=== PATIENT | female | born 1965 ===

== ENCOUNTER → 2020-03-26 11:57 | Outpatient (CLI) | payer OTHER, SELFPAY ==
--- NOTE | 2020-03-26 12:00 | DI.MG.S_ITS ---
BILATERAL DIGITAL SCREENING MAMMOGRAM 3D/2D WITH CAD: 03/26/2020 CLINICAL: Routine screening. Family history of breast cancer. Comparison is made to exam dated: 09/08/2008 mammogram - [facility]. There are scattered fibroglandular elements in both breasts. Current study was also evaluated with a Computer Aided Detection (CAD) system. No significant masses, calcifications, or other findings are seen in either breast. There has been no significant interval change. IMPRESSION: NEGATIVE There is no mammographic evidence of malignancy. A 1 year screening mammogram is recommended. This exam was interpreted at Station ID: [id number]. NOTE: For mammograms, a report in lay terms will be sent to the patient. Approximately 15% of breast malignancies will not be visualized mammographically. In the management of a palpable breast mass, a negative mammogram must not discourage biopsy of a clinically suspicious lesion. Electronically Signed By: Antonio howard/adore:03/26/2020 12:27:41 letter sent: Normal Exam ACR BI-RADS Category 1: Negative [id number]
== END ==
PROVIDERS: Family Provider Family Medicine; PCP Family Medicine; Referring Provider Family Medicine; Visit Provider Family Medicine
DX: Z12.31 Encounter for screening mammogram for malignant neoplasm of breast (principal); Z80.3 Family history of malignant neoplasm of breast
CPT/HCPCS: 77063; 77067

== ENCOUNTER → 2021-01-13 08:30 | Outpatient (CLI) | payer OTHER, SELFPAY ==
--- NOTE | 2021-01-13 | DI.MRI.S_ITS ---
PROCEDURE: MR HEAD/BRAIN WO/W CON INDICATIONS: Syncope and collapse TECHNIQUE: Noncontrast axial T1 spin echo, axial T2 fast spin echo, sagittal and axial FLAIR, coronal T2 fast spin echo, axial gradient echo, axial diffusion and ADC through the brain. After the administration of contrast, axial and coronal T1 spin echo with fat saturation through the brain. COMPARISON: None. FINDINGS: Image quality: Excellent. CSF spaces: Basal cisterns are patent. No extra-axial fluid collections. Ventricles are normal in size and shape. Brain: No midline shift. No intracranial bleeds or masses. No abnormal intracranial enhancement. There is mild cerebral volume loss for age. There is minimal periventricular white matter chronic small vessel ischemic change. The brainstem appears normal. Diffusion-weighted images demonstrate no acute ischemic insults. No chronic ischemic insults. Normal intravascular flow voids are present. Skull and face: Calvarial marrow is normal in signal. Orbits appear normal. Sinuses: Sinuses and mastoids appear clear. IMPRESSION: 1. Mild volume loss and minimal small vessel ischemic disease. 2. No acute process. No recent infarct. Dictated by: Domingo Benedict M.D. on 01/13/2021 at 9:33 Approved by: Domingo Benedict M.D. on 01/13/2021 at 9:34
--- NOTE | 2021-01-13 09:30 | DI.ECHO.S_ITS ---
Reason For Study: SYNCOPE AND COLLAPSE : :Ordering Physician: ZHAO, : :BRITTANY Roberto MD Performed By: Cierra Overton : :Referring: BRITTANY CHURCHILL MD : + + Interpretation Summary 1) Normal left ventricular thickness, size, wall motion, and systolic function (EF 60-65%). 2) Normal right ventricular size and function. 3) No significant valvular abnormalities. 4) No prior Echo available for comparison. Procedure: A two-dimensional transthoracic echocardiogram with color flow and Doppler was performed. The study quality was technically difficult. There is no prior echocardiogram noted for this patient. A contrast injection of Definity was performed to improve assessment of LV function. The patient was in sinus rhythm with heart rates between 72-84 bpm during the exam. Left Ventricle: The left ventricle is normal in size and wall thickness. The ejection fraction is estimated to be 60-65%. Diastolic parameters suggest probable normal left ventricular diastolic function and normal filling pressures. Right Ventricle: The right ventricle is normal in size and function. Atria: Both atria are normal in size. There is no Doppler evidence for an interatrial shunt. Mitral Valve: The mitral valve is normal in structure and function. There is trace mitral regurgitation. Aortic Valve: The aortic valve is trileaflet. The aortic valve is mildly calcified. The aortic valve opens well. There is no aortic valve stenosis. No aortic regurgitation is present. Tricuspid Valve: The tricuspid valve is normal in structure and function. There is trace tricuspid regurgitation. Pulmonary artery pressures cannot be estimated because of the lack of a measurable TR jet velocity but the IVC suggests a CVP of around 3 mmHg. Pulmonic Valve: The pulmonic valve is not well seen, but is grossly normal. There is no pulmonic valvular regurgitation. Great Vessels: The aortic root is normal size. The ascending aorta is at the upper limits of normal in size. The IVC is of normal diameter and collapses greater than 50% with a sniff. This suggests a low right atrial pressure of 3 mm Hg. Pericardium/ Pleura There is no pericardial effusion. There is no pleural effusion. MMode/2D Measurements & Calculations LVIDd: 4.3 cm LVOT diam: 2.0 cm LVIDs: 2.7 cm Ao root diam: 3.3 cm FS: 35.9 % asc Aorta Diam: 3.4 cm IVSd: 0.84 cm Ao Arch Diam (Prox Trans): 3.1 cm LVPWd: 0.85 cm LV fang. diameter/BSA (cm/m^2): 2.1 LV sys. diameter/BSA (cm/m^2): 1.3 LA A2 area: 18.1 cm2 RA long axis: 3.9 cm LA A4 area: 15.3 cm2 RA area: 10.0 cm2 LA length (vol): 4.6 cm RA vol: 22.0 ml LA vol: 50.7 ml RA : 10.8 ml/m2 LA vol index: 24.8 ml/m2 IVC diam: 1.1 cm RVD1 (basal): 3.0 cm TAPSE: 1.8 cm Doppler Measurements & Calculations Ao V2 max: 102.0 cm/sec LVOT Max Mac: 101.2 cm/sec Ao V2 mean: 68.6 cm/sec LV V1 max P.1 mmHg Ao max P.2 mmHg LV V1 VTI: 20.6 cm Ao mean P.1 mmHg MIKAYLA(I,D): 3.4 cm2 Ao V2 VTI: 19.0 cm MIKAYLA(V,D): 3.1 cm2 sev ratio: 1.1 MIKAYLA indexed to BSA (cm^2/m^2): 1.7 MV E max mac: 62.2 cm/sec PA V2 max: 81.0 cm/sec MV A max mac: 92.8 cm/sec PA V2 mean: 62.7 cm/sec MV E/A: 0.67 PA mean P.7 mmHg Med Peak E' Mac: 6.4 cm/sec PA pr(Accel): 44.7 mmHg E/E' med: 9.7 Lat Peak E' Mac: 8.1 cm/sec E/E' lat: 7.7 E/e' average: 8.7 MV dec time: 0.25 sec SV(LVOT): 64.7 ml Reading Physician:12:36 PM
== END ==
PROVIDERS: Family Provider Family Medicine; PCP Family Medicine; Referring Provider Family Medicine; Visit Provider Family Medicine
DX: R55 Syncope and collapse (principal)
CPT/HCPCS: 70553; 93306

== ENCOUNTER → 2021-10-12 07:58 | Outpatient (CLI) | payer OTHER, SELFPAY ==
--- NOTE | 2021-11-03 15:11 | P.HOLT.S_ITS ---
Insect Control Aide Report Referral & Results Date Patient Seen: 10/12/21 Requesting provider: Sourav Aguilar Indication: Syncope Duration of monitoring (days): 14 Diary information: There was 1 patient triggered event that was associated with sinus rhythm only Data: Minimum heart rate identified was 60 beats per minute at 03:22 on 10/24/2021 Maximum sinus heart rate was 133 beats per minute at 07:10 on 10/18/2021 which was also the maximum overall heart rate Less than 1% of identified beats were ventricular or supraventricular ectopic in origin, which would classify them as rare. There were no pauses of 3 seconds or longer, episodes of atrial fibrillation, episodes of SVT, or episodes of ventricular tachycardia identified on this study Impression: Normal 14 day quality assurance monitor chassis. No etiology for syncope identified on this study
== END ==
PROVIDERS: Family Provider Family Medicine; PCP Family Medicine; Referring Provider Family Medicine; Visit Provider Family Medicine
DX: R55 Syncope and collapse (principal)
CPT/HCPCS: 93246; 93248

== ENCOUNTER 2021-11-13 09:21 | Emergency (ER) | payer OTHER, SELFPAY ==
[2021-11-13 09:36] VITALS: BP 135/68; PULSE 87; RESP 20; TEMP 36.8; O2SAT 96; BMI 35.7
--- NOTE | 2021-11-13 09:41 | DI.RAD.S_ITS ---
PROCEDURE: XR CHEST 1V INDICATIONS: chest pain TECHNIQUE: One view of the chest was acquired. COMPARISON: [facility], , CHEST 2 VIEW, 03/18/2013, 9:46. FINDINGS: Surgical changes and devices: Lower cervical spine fixation hardware is partially seen. Lungs and pleura: An incomplete inspiratory result is noted, causing a crowded appearance to the lung markings. No focal infiltrates are seen. No pneumothorax or significant pleural effusions are seen. Mediastinum: Mediastinal contours appear normal. Heart size is normal. Bones and chest wall: No suspicious bony lesions. Overlying soft tissues appear unremarkable. IMPRESSION: Limited portable chest examination, without a significant cardiopulmonary abnormality identified. Dictated by: Hammad Gale M.D. on 11/13/2021 at 9:26 Approved by: Hammad Gale M.D. on 11/13/2021 at 9:26
[2021-11-13 09:56] LABS: Alanine Aminotransferase 24 IU/L (<35); Albumin 4.5 g/dL (3.5-5.0); Albumin Globulin Ratio 1.5 (1.0-2.8); Alkaline Phosphatase 113 U/L (38-126); Aspartate Aminotransferase 28 IU/L (14-36); BUN Creatinine Ratio 14.7 (6-22); Bilirubin Total 0.3 mg/dL (0.2-1.3); Blood Urea Nitrogen 16 mg/dL (7-17); Calcium 8.7 mg/dL (8.4-10.2); Carbon Dioxide 28 mmol/L (22-32); Chloride 99 mmol/L (98-107); Creatine Kinase 56 U/L (30-135); Estimated Glomerular Filt Rate > 60 mL/min (>60); Globulin 3.1 g/dL (1.7-4.1); Glucose 143 mg/dL (70-100); HEMOLYSIS < 15 (0-50); Lipase 886 U/L (23-300); Magnesium 2.1 mg/dL (1.6-2.3); Sodium 137 mmol/L (137-145); Total Protein 7.6 g/dL (6.3-8.2)
[2021-11-13 10:08] LABS: Troponin I < 0.012 ng/mL (0.01-0.034)
[2021-11-13 10:10] LABS: COVID19 -Nasal RAPID Negative (Negative)
[2021-11-13 10:25] LABS: Add Manual Diff / Slide Review NO; Basophils Absolute Auto 0 /uL (0-100); Basophils Percent Auto 0.4 % (0-2); Eosinophils Absolute Auto 100 /uL (0-450); Eosinophils Percent Auto 0.9 % (2-4); Hematocrit 43.1 % (36-46); Hemoglobin 14.2 g/dL (12.0-16.0); Lymphocytes Absolute Auto 1700 /uL (1100-4500); Lymphocytes Percent Auto 23.3 % (25-40); Mean Corpuscular Hemoglobin 29.4 PG (26-34); Mean Corpuscular Volume 89.1 fL (80-100); Monocytes Absolute Auto 500 /uL (0-900); Monocytes Percent Auto 6.5 % (3-14); Neutrophils Absolute Auto 5000 /uL (1500-7000); Neutrophils Percent Auto 68.9 % (50-75); Platelet Count 197 X10^3/uL (150-400); Red Blood Cell Count 4.84 X10^6/uL (4.0-5.2); Red Cell Distribution Width 16.5 % (11.6-14.8); White Blood Cell Count 7.2 X10^3/uL (4.5-11.0)
--- NOTE | 2021-11-13 10:33 | DI.CT.S_ITS ---
PROCEDURE: CT CERVICAL SPINE WO CON INDICATIONS: syncope TECHNIQUE: Noncontrast 3 mm thick sections acquired from the skull base to the T4 level. Sagittal and coronal reformats were then constructed. For radiation dose reduction, the following was used: automated exposure control, adjustment of mA and/or kV according to patient size. COMPARISON: [facility], CT, CT HEAD/BRAIN WO CON, 11/13/2021, 10:49. FINDINGS: Image quality: This examination is somewhat limited by quantum mottle artifact. Bones: No fractures or dislocations. Visualized superior ribs are intact. Fixation hardware can be seen anteriorly at the C5-C6 level. Moderate to severe disc space narrowing is seen at C6-C7. Milder degenerative changes are seen elsewhere. Note is made of focal left sphenoid sinus disease. Soft tissues: Prevertebral soft tissues are normal in thickness. No paravertebral hematomas. No apical pneumothoraces. IMPRESSION: No acute fracture can be seen. Unremarkable C5-C6 postoperative hardware. Focal C6-C7 degenerative change. The Dictated by: Hammad Gale M.D. on 11/13/2021 at 10:15 Approved by: Hammad Gale M.D. on 11/13/2021 at 10:18
--- NOTE | 2021-11-13 10:33 | DI.CT.S_ITS ---
PROCEDURE: CT HEAD/BRAIN WO CON INDICATIONS: syncope TECHNIQUE: Noncontrast 4.5 mm thick angled axial sections acquired from the foramen magnum to the vertex, with coronal and sagittal reformats. For radiation dose reduction, the following was used: automated exposure control, adjustment of mA and/or kV according to patient size. COMPARISON: [facility], CR, XR CHEST 1V, 11/13/2021, 9:53. [facility], CT, CT CERVICAL SPINE WO CON, 11/13/2021, 10:49. [facility], MR, MR HEAD/BRAIN WO/W CON, 01/13/2021, 8:46. FINDINGS: Image quality: Mild streak artifact can be seen through the skull base. CSF spaces: Basal cisterns are patent. No extra-axial fluid collections. Ventricles are normal in size and shape. Brain: No midline shift. No intracranial masses or hemorrhage. Alexis-white matter interface is normal. Skull and face: Calvarium and visualized facial bones are intact, without suspicious lesions. Sinuses: Focal moderate mucosal thickening is seen involving the left sphenoid sinus. Visualized sinuses and mastoids are otherwise clear. IMPRESSION: Unremarkable noncontrast head CT, without a cause of syncope identified. Focal left sphenoid sinus disease noted. Dictated by: Hammad Gale M.D. on 11/13/2021 at 10:12 Approved by: Hammad Gale M.D. on 11/13/2021 at 10:14
--- NOTE | 2021-11-13 10:33 | ED.SYNCOPE ---
HPI - Syncope General Chief Complaint: Syncope Stated Complaint: passed out while taking a hit, shaking, bleeding Time Seen by Provider: 11/13/21 10:24 Source: patient Mode of arrival: Ambulatory Limitations: no limitations History of Present Illness HPI narrative: Patient is a 56-year-old female history of hypertension presenting today with a syncopal episode. She said she did just take a hit of marijuana joint minute later she passed out hit her head on the counter. She has a cut between her eyes. However both she and her sister state that over the last 1 year she has had multiple syncopal episodes. Not necessarily associated with inhaling. She sometimes gets a little lightheaded but very rarely has any warning sign. She has had at Zio patch on which did not show anything. She denies any numbness tingling weakness. No chest pain shortness of breath palpitation Related Data Previous Rx's Medication Instructions Recorded potassium chloride 10 mEq 10 meq PO DAILY #30 caps 11/13/21 capsule,extended release Allergies Allergy/AdvReac Type Severity Reaction Status Date / Time adhesive Allergy Unknown Verified 11/13/21 10:40 Penicillins Allergy Verified 05/14/20 15:21 Review of Systems Review of Systems Narrative: GENERAL: Denies chills, fatigue, malaise, fever, sweats, travel HEENT: Denies sinus pain, ear pain, sore throat, difficulty swallowing, neck pain RESPIRATORY: Denies dyspnea, cough, wheezing, hemoptysis, sputum. CARDIOVASCULAR: + syncope Denies chest pain, palpitations, orthopnea, edema GASTROINTESTINAL: Denies nausea, vomiting, abdominal pain, diarrhea, constipation, melena. : Denies dysuria, frequency, incontinence, hematuria, urinary retention, flank pain. MUSCULOSKELETAL: Denies weakness, joint pain, or bony pain SKIN: No rash, no erythema, no pruritus NEUROLOGIC: Denies weakness, dizziness, headache, numbness, change in speech, confusion PSYCHIATRIC: No concerning psychosocial issues. 12 point review of systems is negative except for those stated above and HPI Patient History Medical History No active medical problems Social History Smoking Status: Current every day smoker Smoking Status: Current every day smoker Exam Initial Vital Signs Initial Vital Signs: Vital Signs Temperature 98.3 F 11/13/21 09:36 Pulse Rate 87 11/13/21 09:36 Respiratory Rate 20 11/13/21 09:36 Blood Pressure 135/68 11/13/21 09:36 Pulse Oximetry 96 11/13/21 09:36 Oxygen Delivery Method 11/13/21 09:36 GENERAL: Alert pleasant 56-year-old female and in no acute distress. HEENT: Head atraumatic,EOMI, pupils reactive, face symmetric, moist mucous membranes CARDIOVASCULAR: Regular rate and rhythm without murmurs, rubs or gallops. RESPIRATORY: Breath sounds equal bilaterally, no wheezes rales or rhonchi. ABDOMEN: Soft, nontender. Normoactive bowel sounds all 4 quadrants. No guarding or rebound. EXTREMITIES: Normal range of motion, no clubbing or edema. Neurovascularly intact NEUROLOGICAL: Alert and oriented x4.Normal gait and speech. Cranial nerves II through XII grossly intact. Good [id number], good simb-gb-naal, strength equal bilaterally, no dysarthria or aphasia, sensation in tact to soft touch bilaterally, no visual changes, no facial droop SKIN: 2.5cm laceration face Procedures Laceration Repair Laceration 1: Site: face Size (cm): 2.5 Description: linear Depth: simple, single layer Local Anesthetic: lidocaine 2% Amount of anesthesia used (mL): 3 Pre-repair: wound explored, irrigated extensively and deep structures intact Skin layer closed with: nylon Skin layer suture size: 5-0 Number of sutures: 5 Technique: simple, interrupted Scores NIH Stroke Scale Level of Conciousness: Alert, keenly responsive Ask month/age: Answers both questions correctly. Open/close eyes, close hand: Performs both tasks correctly Best gaze horizontal: Normal Visual hernandez: No visual loss Facial palsy: Normal symetrical movement Left arm drift: No drift for full 10 sec Right arm drift: No drift for full 10 sec Left leg drift: No drift for full 5 sec Right leg drift: No drift for full 5 sec Limb ataxia: Absent Sensory on face/arms/legs: Normal, no sensory loss Best language: No aphasia, normal Dysarthria: Normal Extinction or inattention: No abnormality Total NIH Stroke scale score: 0 Course Orders Ordered: ED Orders 11/13/21 10:33 CT cervical spine wo con Stat CT head/brain wo con Stat Discontinued Medications Bacitracin (Bacitracin Oint 0.9 Gm Pckt) 1 applic TOP NOW ONE Stop: 11/13/21 12:15 Last Admin: 11/13/21 12:28 Dose: 1 applic Documented By: JORDAN Diphtheria/Tetanus/Acell Pertussis (Tet,Diph,Pertuss(Acell),Vac/Pf 0.5 Ml Syringe) 0.5 ml IM .ONCE ONE Stop: 11/13/21 10:41 Last Admin: 11/13/21 11:05 Dose: 0.5 ml Documented By: AMBER Sodium Chloride (Normal Saline 0.9%) 1,000 mls @ 1,000 mls/hr IV BOLUS ONE Stop: 11/13/21 11:32 Last Infusion: 11/13/21 12:10 Dose: 0 mls/hr Documented By: Admin: 11/13/21 11:06 Dose: 1,000 mls/hr Documented By: AMBER Potassium Chloride (Potassium Chloride 20 Meq Tab) 40 meq PO NOW ONE Stop: 11/13/21 11:48 Last Admin: 11/13/21 11:56 Dose: 40 meq Documented By: JORDAN Vital Signs Vital signs: Vital Signs - 8 hr 11/13/21 10:51 11/13/21 11:09 11/13/21 11:30 Pulse Rate 81 Pulse Rate [Orthostatic Lying] 79 Pulse Rate [Orthostatic Standing] 82 Respiratory Rate 20 Blood Pressure 123/67 Blood Pressure [Orthostatic Lying] 120/68 Blood Pressure [Orthostatic Standing] 115/67 Pulse Oximetry 96 11/13/21 11:30 11/13/21 12:00 11/13/21 12:01 Pulse Rate 80 86 Pulse Rate [Orthostatic Lying] Pulse Rate [Orthostatic Standing] Respiratory Rate 18 Blood Pressure 156/81 H Blood Pressure [Orthostatic Lying] Blood Pressure [Orthostatic Standing] Pulse Oximetry 94 92 11/13/21 12:01 Pulse Rate 80 Pulse Rate [Orthostatic Lying] Pulse Rate [Orthostatic Standing] Respiratory Rate 12 Blood Pressure Blood Pressure [Orthostatic Lying] Blood Pressure [Orthostatic Standing] Pulse Oximetry 97 MDM - Syncope Lab Data Result diagrams: 11/13/21 09:35 11/13/21 09:35 Labs: Lab Results 11/13/21 11/13/21 11/13/21 Range/Units 09:30 09:35 09:35 WBC 7.2 (4.5-11.0) X10^3/uL RBC 4.84 (4.0-5.2) X10^6/uL Hgb 14.2 (12.0-16.0) g/dL Hct 43.1 (36-46) % MCV 89.1 (80-100) fL MCH 29.4 (26-34) PG MCHC 33.0 (30-36) % RDW 16.5 H (11.6-14.8) % Plt Count 197 (150-400) X10^3/uL Neut % (Auto) 68.9 (50-75) % Lymph % (Auto) 23.3 L (25-40) % Vance % (Auto) 6.5 (3-14) % Eos % (Auto) 0.9 L (2-4) % Baso % (Auto) 0.4 (0-2) % Neut # (Auto) 5000 (6758-6659) /uL Lymph # (Auto) 1700 (0669-4642) /uL Vance # (Auto) 500 (0-900) /uL Eos # (Auto) 100 (0-450) /uL Baso # (Auto) 0 (0-100) /uL D-Dimer < 200 (<230) ng/mL Sodium 137 (137-145) mmol/L Potassium 3.0 L (3.4-5.1) mmol/L Chloride 99 (98-107) mmol/L Carbon Dioxide 28 (22-32) mmol/L BUN 16 (7-17) mg/dL Creatinine 1.09 H (0.52-1.04) mg/dL Estimated GFR > 60 (>60) mL/min BUN/Creatinine Ratio 14.7 (6-22) Glucose 143 H (70-100) mg/dL Calcium 8.7 (8.4-10.2) mg/dL Magnesium 2.1 (1.6-2.3) mg/dL Total Bilirubin 0.3 (0.2-1.3) mg/dL AST 28 (14-36) IU/L ALT 24 (<35) IU/L Alkaline Phosphatase 113 (38-126) U/L Total Creatine Kinase 56 (30-135) U/L CK-MB (CK-2) TNP CK-MB (CK-2) Rel Index TNP Troponin I < 0.012 (0.01-0.034) ng/mL Total Protein 7.6 (6.3-8.2) g/dL Albumin 4.5 (3.5-5.0) g/dL Globulin 3.1 (1.7-4.1) g/dL Albumin/Globulin Ratio 1.5 (1.0-2.8) Lipase 886 H (23-300) U/L SARS-CoV-2 (PCR) (Negative) 11/13/21 Range/Units 09:35 WBC (4.5-11.0) X10^3/uL RBC (4.0-5.2) X10^6/uL Hgb (12.0-16.0) g/dL Hct (36-46) % MCV (80-100) fL MCH (26-34) PG MCHC (30-36) % RDW (11.6-14.8) % Plt Count (150-400) X10^3/uL Neut % (Auto) (50-75) % Lymph % (Auto) (25-40) % Vance % (Auto) (3-14) % Eos % (Auto) (2-4) % Baso % (Auto) (0-2) % Neut # (Auto) (8775-0071) /uL Lymph # (Auto) (3186-2661) /uL Vance # (Auto) (0-900) /uL Eos # (Auto) (0-450) /uL Baso # (Auto) (0-100) /uL D-Dimer (<230) ng/mL Sodium (137-145) mmol/L Potassium (3.4-5.1) mmol/L Chloride (98-107) mmol/L Carbon Dioxide (22-32) mmol/L BUN (7-17) mg/dL Creatinine (0.52-1.04) mg/dL Estimated GFR (>60) mL/min BUN/Creatinine Ratio (6-22) Glucose (70-100) mg/dL Calcium (8.4-10.2) mg/dL Magnesium (1.6-2.3) mg/dL Total Bilirubin (0.2-1.3) mg/dL AST (14-36) IU/L ALT (<35) IU/L Alkaline Phosphatase (38-126) U/L Total Creatine Kinase (30-135) U/L CK-MB (CK-2) CK-MB (CK-2) Rel Index Troponin I (0.01-0.034) ng/mL Total Protein (6.3-8.2) g/dL Albumin (3.5-5.0) g/dL Globulin (1.7-4.1) g/dL Albumin/Globulin Ratio (1.0-2.8) Lipase (23-300) U/L SARS-CoV-2 (PCR) Negative (Negative) Imaging Data CT scan - head: Radiologist's Impression: Signed Patient: Ariadne Stearns MR#: [id number] : 1965 Acct:[id number] Age/Sex: 56 / F Date of Service: 11/13/21 Loc: ED Accession Number: [id number] ?? Procedure: CT head/brain wo con Ordering Provider: Digna Dominguez D.O. PROCEDURE:? CT HEAD/BRAIN WO CON ? INDICATIONS:? syncope ? TECHNIQUE:? Noncontrast 4.5 mm thick angled axial sections acquired from the foramen magnum to the vertex, with coronal and sagittal reformats.? For radiation dose reduction, the following was used:? automated exposure control, adjustment of mA and/or kV according to patient size.? ? COMPARISON:? [facility], CR, XR CHEST 1V, 11/13/2021, 9:53.? [facility], CT, CT CERVICAL SPINE WO CON, 11/13/2021, 10:49.? [facility], MR, MR HEAD/BRAIN WO/W CON, 01/13/2021, 8:46. ? FINDINGS:? Image quality:? Mild streak artifact can be seen through the skull base. ? CSF spaces:? Basal cisterns are patent.? No extra-axial fluid collections.? Ventricles are normal in size and shape.? ? Brain:? No midline shift.? No intracranial masses or hemorrhage.? Aleixs-white matter interface is normal.? ? Skull and face:? Calvarium and visualized facial bones are intact, without suspicious lesions.? ? Sinuses:? Focal moderate mucosal thickening is seen involving the left sphenoid sinus.? Visualized sinuses and mastoids are otherwise clear.? IMPRESSION:? Unremarkable noncontrast head CT, without a cause of syncope identified. ? Focal left sphenoid sinus disease noted.? Dictated by: Hammad Gale M.D. on 11/13/2021 at 10:12 ? CT - cervical spine: Radiologist's Impression: CT Scan Report Signed Patient: Ariadne Stearns MR#: [id number] : 1965 Acct:[id number] Age/Sex: 56 / F Date of Service: 11/13/21 Loc: ED Accession Number: [id number] ?? Procedure: CT cervical spine wo con Ordering Provider: Digna Dominguez D.O. PROCEDURE:? CT CERVICAL SPINE WO CON ? INDICATIONS:? syncope ? TECHNIQUE:? Noncontrast 3 mm thick sections acquired from the skull base to the T4 level.? Sagittal and coronal reformats were then constructed.? For radiation dose reduction, the following was used:? automated exposure control, adjustment of mA and/or kV according to patient size.? ? COMPARISON:? [facility], CT, CT HEAD/BRAIN WO CON, 11/13/2021, 10:49. ? FINDINGS:? Image quality:? This examination is somewhat limited by quantum mottle artifact.? ? Bones:? No fractures or dislocations.? Visualized superior ribs are intact.? ? Fixation hardware can be seen anteriorly at the C5-C6 level.? Moderate to severe disc space narrowing is seen at C6-C7.? Milder degenerative changes are seen elsewhere.? ? Note is made of focal left sphenoid sinus disease. ? Soft tissues:? Prevertebral soft tissues are normal in thickness.? No paravertebral hematomas.? No apical pneumothoraces.? ? ? IMPRESSION:? No acute fracture can be seen. ? Unremarkable C5-C6 postoperative hardware. ? Focal C6-C7 degenerative change.? The ? ? Dictated by: Hammad Gale M.D. on 11/13/2021 at 10:15 ? ? Approved by: Hammad Gale M.D. on 11/13/2021 at 10:18 ? ECG Data Interpretation: Normal sinus rhythm rate 85 HI interval 174 QRS 82 QTC 466 Q-wave noted in lead 3 MDM Narrative Medical decision making narrative: Patient had a single episode today. Laceration on page easily sutured. Workup does reveal mild hypokalemia probably from hydrochlorothiazide. She says that she has had workup before I do not see any carotid Dopplers neck be added as an outpatient. D-dimer is negative unlikely to be PE as source. Today I think she probably vasovagal from inhalation. However it does not explain her previous episodes. She may have orthostatics from blood pressure medicine however her blood pressure is okay here in she has negative orthostatics. She is given a L of fluid. She is found to have mildly elevated lipase without symptoms. She has absolutely no abdominal pain nausea or vomiting. At this time she can follow up with her PCP for suture removal an ongoing workup of recurrent syncope. Discharge Plan Departure Patient Disposition: Home Clinical Impression: Laceration, Syncope, Acute hypokalemia Instructions: DI for Syncope in Adults (Fainting), DI for Laceration Repair Activity Restrictions/Additional Instructions: *You have been diagnosed with syncopal episode, low potassium, facial laceration *What to do: Have sutures removed in about 5-7 days keep clean and dry with soap and water put antibiotic ointment on it 1-2 times daily You do need carotid Doppler ultrasound for workup of syncope. This can be done as an outpatient. Blood pressure medication may also need to be decreased please discuss this with her PCP *Continue to take medications as directed Potassium 10 mEq daily mold taking hydrochlorothiazide --> SENT TO [facility] *Follow up with your primary care provider in 2-3 days or call [phone] *Return to ER if you should have recurrent syncope chest pain palpitations redness swelling or any new, worsening or concerning symptoms Prescriptions: New potassium chloride 10 mEq capsule, extended release 10 meq PO DAILY Qty: 30 0RF Referrals: Sourav Aguilar MD [Primary Care Provider] - Visit Report Forms: Patient Portal/API
[2021-11-13 10:45] LABS: D Dimer < 200 ng/mL (<230)
[2021-11-13 10:51] VITALS: BP 115/67; BP 120/68; PULSE 79; PULSE 82
[2021-11-13] MEDS: TET,DIPH,PERTUSS(ACELL),VAC/PF 0.5 ML SYRINGE IM (11:05)
[2021-11-13] MEDS: SODIUM CHLORIDE 0.9% 1,000 ML 1000 ML IV (11:06)
[2021-11-13 11:09] VITALS: PULSE 81; RESP 20; O2SAT 96
[2021-11-13 11:30] VITALS: BP 123/67; PULSE 80; RESP 18; O2SAT 94
[2021-11-13] MEDS: POTASSIUM CHLORIDE 20 MEQ TAB 40 MEQ PO (11:56)
[2021-11-13 12:00] VITALS: PULSE 86; O2SAT 92
[2021-11-13 12:01] VITALS: BP 156/81; PULSE 80; RESP 12; O2SAT 97
[2021-11-13] MEDS: BACITRACIN OINT 0.9 GM PCKT 1 APPLIC TOP (12:28)
== END 2021-11-13 12:27 | disposition home or self-care (01) ==
PROVIDERS: Emergency Provider Emergency Medicine; Family Provider Family Medicine; PCP Family Medicine
DX: S01.81XA Laceration without foreign body of other part of head, initial encounter (principal); R55 Syncope and collapse; E87.6 Hypokalemia; Z20.822 Contact with and (suspected) exposure to COVID-19; Z23 Encounter for immunization
CPT/HCPCS: 12011; 36415; 70450; 71045; 72125; 80053; 82550; 83690; 83735; 84484; 85025; 85379; 87635; 90471; 93005; 96360; 99284; C9803; 90715

== ENCOUNTER → 2021-11-21 11:40 | Outpatient (CLI) | payer OTHER, SELFPAY ==
--- NOTE | 2021-11-21 11:42 | DI.US.S_ITS ---
PROCEDURE: US CAROTID DOPPLER BI INDICATIONS: Syncope and collapse TECHNIQUE: Color and pulse Doppler interrogation was performed of both carotid systems, with image documentation and velocity measurements. COMPARISON: None. FINDINGS: Stenosis calculations are based on SRU (Society of Radiologists in Ultrasound) criteria. Right side: Brachial blood pressure: 127/72 mm Hg. Common carotid artery peak systolic velocity: 124 cm/sec. Internal carotid artery peak systolic velocity: 89 cm/sec. Internal carotid artery end diastolic velocity: 25 cm/sec. External carotid artery peak systolic velocity: 130 cm/sec. ICA/CCA peak systolic ratio: 0.7 . Alexis scale imaging description: Mild scattered plaque. Percent internal carotid artery stenosis: Less than 50% . Vertebral artery: Flow direction is antegrade. Left side: Brachial blood pressure: 117/66 mm Hg. Common carotid artery peak systolic velocity: 89 cm/sec. Internal carotid artery peak systolic velocity: 122 cm/sec. Internal carotid artery end diastolic velocity: 32 cm/sec. External carotid artery peak systolic velocity: 210 cm/sec. ICA/CCA peak systolic ratio: 1.4 . Alexis scale imaging description: Mild scattered plaque. Percent internal carotid artery stenosis: Less than 50% . Vertebral artery: Flow direction is antegrade. IMPRESSION: 1. Less than 50% bilateral internal carotid artery stenosis. Dictated by: Jason Don Tai Interpreted: Domingo Benedict MD on 11/21/2021 at 13:58 Transcribed by: VICKY on 11/21/2021 at 14:00 Approved by: Domingo Benedict M.D. on 11/21/2021 at 15:20
== END ==
PROVIDERS: Family Provider Family Medicine; PCP Family Medicine; Referring Provider Family Medicine; Visit Provider Family Medicine
DX: R55 Syncope and collapse (principal); I65.23 Occlusion and stenosis of bilateral carotid arteries
CPT/HCPCS: 93880

== ENCOUNTER → 2021-12-08 09:51 | Outpatient (CLI) | payer OTHER, SELFPAY ==
--- NOTE | 2021-12-08 | DI.CT.S_ITS ---
PROCEDURE: CT CHEST W CON INDICATIONS: Chronic cough TECHNIQUE: After the administration of intravenous contrast, 5 mm thick sections acquired from the pulmonary apices to the posterior costophrenic angles. 1 mm axial lung, 5 mm thick coronal and sagittal reformats and 7 mm axial MIP were acquired. For radiation dose reduction, the following was used: automated exposure control, adjustment of mA and/or kV according to patient size. COMPARISON: [facility], CT, THORAX WITH CONTRAST, 03/24/2013, 13:52. [facility], CR, XR CHEST 1V, 11/13/2021, 9:53. FINDINGS: Image quality: Excellent. Lungs and pleura: Mild subpleural ground-glass infiltrate in the right upper lobe (series 3 image 67). There is a 1.9 cm lucent lesion in the right lower lobe, most likely a pneumatocele or a bulla. No acute air space opacities. No pleural effusions or pneumothorax. Central and peripheral airways are patent and normal in caliber. Mediastinum: Heart size is normal. There is mild coronary artery calcification. No pericardial effusion. No mediastinal or hilar adenopathy by size criteria. Thoracic aorta and central pulmonary arteries are normal in size. Esophagus is normal in caliber. Small hiatal hernia. Bones and chest wall: No suspicious bony lesions. No vertebral body compression fractures. No axillary or supraclavicular adenopathy by size criteria. Thyroid gland is normal. Abdomen: There is hepatic steatosis Visualized upper abdominal solid organs otherwise appear normal. Upper abdominal bowel loops are normal in caliber. IMPRESSION: 1. There is mild ground-glass infiltrate in the right upper lobe, most likely infectious or inflammatory in nature. if clinical symptoms persist, high-resolution chest CT may be helpful for follow-up. 2. A 1.9 cm pneumatocele or bulla in the right lower lobe. 3. Mild coronary artery atherosclerosis. 4. Hepatic steatosis. Dictated by: Junior Burgess M.D. on 12/08/2021 at 13:07 Approved by: Junior Burgess M.D. on 12/08/2021 at 13:25
== END ==
PROVIDERS: Family Provider Family Medicine; PCP Family Medicine; Referring Provider Family Medicine; Visit Provider Family Medicine
DX: R05.3 Chronic cough (principal)
CPT/HCPCS: 71260; Q9967

== ENCOUNTER → 2022-04-04 09:08 | Outpatient (CLI) | payer OTHER, SELFPAY ==
--- NOTE | 2022-04-04 09:42 | DI.ECHO.S_ITS ---
Interpretation Summary 1) Normal left ventricular size, wall motion, and systolic function (EF 60- 65%). 2) Normal right ventricular size with low normal function. 3) No significant valvular abnormalities. 4) Compared to the Echo done 01/13/2021, no significant change. Procedure: A two-dimensional transthoracic echocardiogram with color flow and Doppler was performed. The study quality was technically difficult. Comparison is made with the echocardiogram of 01/13/2021. The patient was in sinus rhythm with heart rates between 84-90 bpm during the exam. Left Ventricle: The left ventricle is normal in size. There is borderline concentric left ventricular hypertrophy. Proximal septal thickening is noted. The ejection fraction is estimated to be 60-65%. Left ventricular systolic function appears normal without focal wall motion abnormalities. Diastolic parameters suggest probable normal left ventricular diastolic function and normal filling pressures. Right Ventricle: The right ventricle is normal size. Right ventricular systolic function is at the lower limits of normal. Atria: The left atrial size is normal. Right atrial size is normal. There is no Doppler evidence for an interatrial shunt. Mitral Valve: The mitral valve is normal in structure and function. There is no mitral regurgitation noted. Aortic Valve: The aortic valve is mildly calcified. There is no aortic valve stenosis. No aortic regurgitation is present. Tricuspid Valve: The tricuspid valve is normal in structure and function. There is a trace or physiologic amount of tricuspid regurgitation. Pulmonary artery pressures cannot be estimated because of the lack of a measurable TR jet velocity. Pulmonic Valve: The pulmonic valve is not well visualized. Great Vessels: The aortic root is normal size. The ascending aorta could not be visualized. The IVC is of normal diameter and collapses greater than 50% with a sniff. This suggests a low right atrial pressure of 3 mm Hg. Pericardium/ Pleura There is no pericardial effusion. There is no pleural effusion. MMode/2D Measurements & Calculations LVIDd: 4.3 cm LVOT diam: 2.0 cm LVIDs: 2.6 cm Ao root diam: 3.3 cm FS: 40.5 % Ao Arch Diam (Prox Trans): 3.1 cm IVSd: 1.3 cm LVPWd: 1.0 cm LV fang. diameter/BSA (cm/m^2): 2.2 LV sys. diameter/BSA (cm/m^2): 1.3 LA A2 area: 17.6 cm2 RA long axis: 4.8 cm LA A4 area: 18.0 cm2 RA area: 12.5 cm2 LA length (vol): 5.2 cm RA vol: 27.9 ml LA vol: 51.8 ml RA : 14.0 ml/m2 LA vol index: 25.9 ml/m2 IVC diam: 1.4 cm RVD1 (basal): 3.0 cm RVD2 (mid): 2.5 cm TAPSE: 1.6 cm Doppler Measurements & Calculations Ao V2 max: 136.3 cm/sec LVOT Max Mac: 109.5 cm/sec Ao V2 mean: 99.8 cm/sec LV V1 max P.8 mmHg Ao max P.4 mmHg LV V1 VTI: 21.8 cm Ao mean P.3 mmHg MIKAYLA(I,D): 2.5 cm2 Ao V2 VTI: 27.3 cm MIKAYLA(V,D): 2.5 cm2 sev ratio: 0.80 MIKAYLA indexed to BSA (cm^2/m^2): 1.2 MV E max mac: 41.6 cm/sec PA V2 max: 93.8 cm/sec MV A max mca: 115.4 cm/sec PA V2 mean: 70.9 cm/sec MV E/A: 0.36 PA mean P.1 mmHg Med Peak E' Mac: 5.0 cm/sec PA pr(Accel): 48.2 mmHg E/E' med: 8.4 Lat Peak E' Mac: 9.4 cm/sec E/E' lat: 4.4 E/e' average: 6.4 MV dec time: 0.23 sec SV(LVOT): 67.1 ml Reading Physician:12:49 PM
== END ==
PROVIDERS: Family Provider Family Medicine; PCP Family Medicine; Referring Provider Internal Medicine Cardiovascular Disease; Visit Provider Internal Medicine Cardiovascular Disease
DX: R55 Syncope and collapse (principal)
CPT/HCPCS: 93306

== ENCOUNTER 2024-10-14 13:16 | Inpatient (IN) | payer OTHER, SELFPAY ==
[2024-10-14] VITALS (13 sets, daily range): BP systolic 104–134; BP diastolic 56–73; PULSE 69–83; RESP 14–20; TEMP 35.6–36.3; O2SAT 88–96; BMI 29.5
--- NOTE | 2024-10-14 13:41 | EKG_ITS ---
[address] [id number] Test Date: 2024-10-14 Pat Name: Ariadne Stearns Department: Room: 225 Gender: Female [employer] Feeder: FRANSISCO : 1965 Requested By: Order Number: [id number] Reading MD: Rosales Choi MD Measurements Intervals [facility] Rate: 77 P: 60 TN: 192 QRS: 18 QRSD: 84 T: 50 QT: 416 QTc: 470 Interpretive Statements Normal sinus rhythm Electronically Signed On 10-15-2024 6:37:26 PDT by Rosales Choi MD
--- NOTE | 2024-10-14 13:50 | ED.GENADULT ---
HPI - General Adult General Chief complaint: Syncope Stated complaint: Has fainted twice in last 24hours Time Seen by Provider: 10/14/24 13:20 Source: patient Mode of arrival: Ambulatory History of Present Illness HPI narrative: 59-year-old woman with a history of COPD, hypothyroidism, hypertension and anxiety, currently on Ozempic for weight loss and has lost 40 lb. Had an episode of syncope while she was at the gym yesterday, she was hanging from a bar, today she was sitting at her desk eating lunch and had another syncopal episode today. She fell forward from a sitting position onto her desk. She describes feeling dizzy just before the episode. She is having some mild back and leg pain after the fall yesterday unsure of her head hit the med or not. Last week she had quite a bit of nausea, vomiting, dizziness and overall fatigue. Last Ozempic shot was 2 weeks ago. Blood sugar on arrival was 116th She notes she has been having unexplained syncopal episodes for almost 2 years, she sees Dr. Aguilar. Workup has included CT scans, EKGs, Cardiology consultation with implanted loop monitors with no suggestion of rhythm pathology. Current medications include clonazepam 0.5 mg typically b.i.d. but up to t.i.d., metoprolol, gabapentin, Flexeril Related Data Previous Rx's ?Medication ?Instructions ?Recorded potassium chloride 10 mEq 10 meq PO DAILY #30 caps 11/13/21 capsule,extended release Allergies Allergy/AdvReac Type Severity Reaction Status Date / Time adhesive Allergy Unknown Verified 10/14/24 13:22 Penicillins Allergy Verified 10/14/24 13:22 Review of Systems Review of Systems Narrative: Pertinent positive and negative findings as per HPI Patient History Medical History (Updated 10/14/24 @ 16:16 by Kaley Ngo MD) Syncope COPD (chronic obstructive pulmonary disease) Restless legs syndrome Chronic back pain No active medical problems Social History Smoking Status: Current every day smoker Smoking Status: Current every day smoker tobacco type: cigarettes Exam Initial Vital Signs Initial Vital Signs: Vital Signs Temperature 97.4 F L 10/14/24 13:22 Pulse Rate 83 10/14/24 13:22 Respiratory Rate 18 10/14/24 13:22 Blood Pressure 109/61 10/14/24 13:22 Pulse Oximetry 93 10/14/24 13:22 Oxygen Delivery Method Room Air 10/14/24 13:22 General: Fatigued but in no acute distress. Able to give a complete and coherent history. Well-nourished well-developed HEENT: Moist mucous membranes, normal sclera with reactive pupils, Respiratory: Lungs with scattered wheeze but no rhonchi Cardiac: Regular rate and rhythm no murmurs no bruits, no significant change to heart rate was standing (she is on metoprolol) Abdomen: Soft, nontender, no rebound or guarding, no flank pain Skin: Warm and dry, bruise to the left hip after falling in the gym yesterday Neurologic: Grossly neurologically intact with no obvious asymmetries or abnormalities Extremities: No trauma, well perfused Psych: Cooperative, appropriate insight and affect Course Orders Ordered: ED Orders 10/14/24 13:44 Complete Blood Count AUTO DIFF Stat Comprehensive Metabolic Panel Stat Lipase Stat Magnesium Stat NT-proBNP (BNP-Adult 18+) Stat Procalcitonin Stat Troponin I Stat 10/14/24 14:10 XR chest 1V Stat Discontinued Medications Albuterol/Ipratropium (Albuterol/Ipratropium 3 Ml Ampul) 3 ml INH NOW ONE Stop: 10/14/24 14:10 Last Admin: 10/14/24 14:38 Dose: 3 ml Documented By: SAT Sodium Chloride (Normal Saline 0.9%) 1,000 mls @ 1,000 mls/hr IV BOLUS ONE Stop: 10/14/24 15:08 Last Admin: 10/14/24 14:29 Dose: 1,000 mls/hr Documented By: CINDY Vital Signs Vital signs: Vital Signs - 8 hr 10/14/24 13:22 10/14/24 13:44 10/14/24 13:45 Temperature 97.4 F L Pulse Rate 83 75 75 Respiratory Rate 18 14 15 Blood Pressure 109/61 Pulse Oximetry 93 95 93 Oxygen Delivery Method Room Air Oxygen Flow Rate 10/14/24 13:45 10/14/24 14:00 10/14/24 14:00 Temperature Pulse Rate 75 Respiratory Rate Blood Pressure 114/68 104/67 Pulse Oximetry 92 Oxygen Delivery Method Oxygen Flow Rate 10/14/24 14:30 10/14/24 14:30 10/14/24 14:44 Temperature Pulse Rate 76 75 Respiratory Rate 16 Blood Pressure 117/69 Pulse Oximetry 94 93 Oxygen Delivery Method Nasal Cannula Room Air Oxygen Flow Rate 1 10/14/24 15:00 10/14/24 15:00 10/14/24 15:30 Temperature Pulse Rate 77 80 Respiratory Rate 18 20 Blood Pressure 120/58 L Pulse Oximetry 91 92 Oxygen Delivery Method Nasal Cannula Oxygen Flow Rate 1 10/14/24 15:30 Temperature Pulse Rate Respiratory Rate Blood Pressure 117/56 L Pulse Oximetry Oxygen Delivery Method Oxygen Flow Rate Medical Decision Making Lab Data 10/14/24 13:44 10/14/24 13:44 Labs: Lab Results 10/14/24 Range/Units 13:44 WBC 9.7 (4.5-11.0) X10^3/uL RBC 4.62 (4.0-5.2) X10^6/uL Hgb 13.8 (12.0-16.0) g/dL Hct 40.6 (36-46) % MCV 87.8 (80-100) fL MCH 29.8 (26-34) PG MCHC 33.9 (30-36) % RDW 15.2 H (11.6-14.8) % Plt Count 167 (150-400) X10^3/uL Neut % (Auto) 73.8 (50-75) % Lymph % (Auto) 15.8 L (25-40) % [place] % (Auto) 7.4 (3-14) % Eos % (Auto) 2.2 (2-4) % Baso % (Auto) 0.8 (0-2) % Neut # (Auto) 7200 H (0943-5647) /uL Lymph # (Auto) 1500 (0718-5274) /uL [place] # (Auto) 700 (0-900) /uL Eos # (Auto) 200 (0-450) /uL Baso # (Auto) 100 (0-100) /uL Sodium 129 L (137-145) mmol/L Potassium 3.2 L (3.4-5.1) mmol/L Chloride 91 L (98-107) mmol/L Carbon Dioxide 24 (22-32) mmol/L BUN 32 H (7-17) mg/dL Creatinine 2.87 H (0.52-1.04) mg/dL Estimated GFR 19 L (>60) mL/min BUN/Creatinine Ratio 11.1 (6-22) Glucose 99 (70-99) mg/dL Calcium 9.3 (8.4-10.2) mg/dL Magnesium 2.0 (1.6-2.3) mg/dL Total Bilirubin 0.9 (0.2-1.3) mg/dL AST 53 H (14-36) IU/L ALT 29 (<35) IU/L Alkaline Phosphatase 82 (38-126) U/L Troponin I < 0.012 (0.01-0.034) ng/mL NT-Pro-B Natriuret Pep 246 H (<125) pg/mL Total Protein 8.0 (6.3-8.2) g/dL Albumin 4.6 (3.5-5.0) g/dL Globulin 3.4 (1.7-4.1) g/dL Albumin/Globulin Ratio 1.4 (1.0-2.8) Lipase 134 (23-300) U/L Procalcitonin 0.204 (<0.5) ng/mL MDM Narrative Medical decision making narrative: CC: Two episodes of syncope in the last 24 hours Complicating co-morbidities: COPD, hypertension, anxiety on clonazepam, hypothyroidism Data collected from: patient Medical records reviewed: Patient did have a full review of recurrent episodes of syncope in 2021. Imaging studies from that time are reviewed and include echocardiogram, chest CT, head CT, cervical spine CT, chest x-ray as well as a carotid Doppler study. All of those studies were essentially normal Differential considered: Cardiac syncope, dehydration, polypharmacy,POTS Exam documented above, pertinent findings include: Minor scattered wheeze otherwise entirely unremarkable exam Lab Test results independently reviewed as above. Pertinent findings: CBC is reassuring Chemistries are notable for sodium 129, potassium at 3.2, chloride low at 91. Acute kidney injury with creatinine at 2.87. Liver studies are unremarkable Troponin is undetectable ProBNP is unremarkable Procalcitonin is not elevated Independently reviewed EKG: Sinus rhythm at a rate of 77 without acute ischemic changes Imaging studies independently reviewed: No obvious infiltrates, no cardiomegaly Consultations: Discussion with her primary care physician and admitting doctor, Dr. Aguilar Treatments: 1 L of fluid than continuing at 1:50 a.m. an hour, DuoNeb oral potassium Re-evaluations: Patient is feeling slightly better after the initial L of fluid, Discussion: 59-year-old woman who last week had significant diarrhea and vomiting. Last night had a syncopal episode while she was having a workout at the gym and again a syncopal episode sitting at her desk today. She found to have acute kidney injury, hyponatremia, hypokalemia, her baseline COPD does not seem to be significantly worse. No evidence for acute coronary syndrome, congestive heart failure or cardiac rhythm abnormality. Have recommended hospitalization for at least 24 hours of IV fluids to re-evaluate kidney function and electrolyte disturbances. Discussed with Dr. Aguilar who will be admitting the patient. Discussed with the patient and questions were answered Additional Information: Bridging orders written from the emergency department for admission to the hospital Discharge Plan Departure Patient Disposition: Admitted as Observation Clinical Impression: Acute kidney injury, Acute dehydration, Acute hyponatremia, Acute hypokalemia Admit Date/Time: 10/14/24 16:05 Admit Provider: Sourav Aguilar
--- NOTE | 2024-10-14 14:10 | DI.RAD.S_ITS ---
PROCEDURE: XR CHEST 1V INDICATIONS: syncope TECHNIQUE: One view of the chest was acquired. COMPARISON: [facility], CR, XR CHEST 1V, 11/13/2021, 9:53. FINDINGS: Surgical changes and devices: A pacemaker device is projected over the left aspect of the cardiac silhouette. Lungs and pleura: Lungs are clear. No pleural effusions or pneumothorax. Mediastinum: Mediastinal contours appear normal. Heart size is normal. Bones and chest wall: No suspicious bony lesions. Overlying soft tissues appear unremarkable. IMPRESSION: No acute cardiopulmonary abnormality is seen. Dictated by: Marisabel Osborn M.D. on 10/14/2024 at 15:29 Approved by: Marisabel Osborn M.D. on 10/14/2024 at 15:29
[2024-10-14 14:20] LABS: Add Manual Diff / Slide Review NO; Basophils Absolute Auto 100 /uL (0-100); Basophils Percent Auto 0.8 % (0-2); Eosinophils Absolute Auto 200 /uL (0-450); Eosinophils Percent Auto 2.2 % (2-4); Hematocrit 40.6 % (36-46); Hemoglobin 13.8 g/dL (12.0-16.0); Lymphocytes Absolute Auto 1500 /uL (1100-4500); Lymphocytes Percent Auto 15.8 % (25-40); Mean Corpuscular HGB Conc 33.9 % (30-36); Mean Corpuscular Hemoglobin 29.8 PG (26-34); Mean Corpuscular Volume 87.8 fL (80-100); Monocytes Absolute Auto 700 /uL (0-900); Monocytes Percent Auto 7.4 % (3-14); Neutrophils Absolute Auto 7200 /uL (1500-7000); Neutrophils Percent Auto 73.8 % (50-75); Platelet Count 167 X10^3/uL (150-400); Red Blood Cell Count 4.62 X10^6/uL (4.0-5.2); Red Cell Distribution Width 15.2 % (11.6-14.8); White Blood Cell Count 9.7 X10^3/uL (4.5-11.0)
[2024-10-14 14:26] LABS: Alanine Aminotransferase 29 IU/L (<35); Albumin 4.6 g/dL (3.5-5.0); Albumin Globulin Ratio 1.4 (1.0-2.8); Alkaline Phosphatase 82 U/L (38-126); Aspartate Aminotransferase 53 IU/L (14-36); BUN Creatinine Ratio 11.1 (6-22); Bilirubin Total 0.9 mg/dL (0.2-1.3); Blood Urea Nitrogen 32 mg/dL (7-17); Calcium 9.3 mg/dL (8.4-10.2); Carbon Dioxide 24 mmol/L (22-32); Chloride 91 mmol/L (98-107); Estimated Glomerular Filt Rate 19 mL/min (>60); Globulin 3.4 g/dL (1.7-4.1); Glucose 99 mg/dL (70-99); Lipase 134 U/L (23-300); Potassium 3.2 mmol/L (3.4-5.1); Sodium 129 mmol/L (137-145)
[2024-10-14] MEDS: SODIUM CHLORIDE 0.9% 1,000 ML 1000 ML IV (14:29)
[2024-10-14 14:36] LABS: HEMOLYSIS 39 (0-50)
[2024-10-14 14:38] LABS: NT-proBNP (BNP-Adult 18+) 246 pg/mL (<125); Troponin I < 0.012 ng/mL (0.01-0.034)
[2024-10-14] MEDS: ALBUTEROL/IPRATROPIUM 3 ML AMPUL INH (14:38)
[2024-10-14 14:42] LABS: Procalcitonin 0.204 ng/mL (<0.5)
[2024-10-14] MEDS: POTASSIUM CHLORIDE 20 MEQ TAB 40 MEQ PO ×2 (17:14→20:16)
[2024-10-14] MEDS: ACETAMINOPHEN 325 MG TABLET 975 MG PO (17:14)
[2024-10-14] MEDS: ONDANSETRON 4 MG/2 ML INJ IV (17:15)
[2024-10-14] MEDS: SODIUM CHLORIDE 0.9% 1,000 ML 150 ML IV ×2 (17:34→23:52)
[2024-10-14 17:52] LABS: POC Glucose 116 mg/dL (70-99)
--- NOTE | 2024-10-14 18:18 | PC.NURSE ---
Pt admitted up from ED for GABRIELLE. IV NS running. New IV started for pt comfort. Clear liquid diet, good PO intake. 1x zofran for nausea. Family at bedside. NC titrated off. On tele.
--- NOTE | 2024-10-14 19:01 | PM.HP.1 ---
History of Present Illness History of Present Illness Date Patient Seen: 10/14/24 Time Patient Seen: 19:01 Date of Onset of Symptoms: 09/30/24 Chief complaint: Has fainted twice in last 24hours Narrative: Patient is a 59-year-old female well known to me who presents with syncopal episode. Patient has had proximally 2 weeks of nausea vomiting. Unable to take much fluids. Severe fatigue. Basically laid at home and slept last week. Took her medicines but did not take much else. Not a lot intake. No urinary changes. No pain with urination. Fevers chills or other change. Patient had some abdominal pain. Patient had been taking a GLP 1 and has not taken that for 2 weeks. Patient has had several episodes of syncope she was down at her workup place and pulled down on a bar and then will passed out. Witnessed with no seizure activity or other change. Patient was seen yesterday in clinic. Had some abdominal pain. Her abdominal pain had been mostly epigastric. With no radiation or other change. She has had no hematemesis. It has all been clear fluid has had persistent nausea but started to feel better Sunday. It has started to eat a little but not much. Patient had had no other significant change. She denies headaches visual symptoms. Today she woke up feeling kind of slow. Had some feelings of not being able to kind of move her legs right. Apparently when she walked into work today she was having some trouble with her gait. She was not speaking in full sentences. She was sitting at her desk had another syncopal episode and then was brought to the emergency room. No other change or complaint. [facility] Medical History (Updated 10/14/24 @ 16:16 by Kaley Ngo MD) Syncope COPD (chronic obstructive pulmonary disease) Restless legs syndrome Chronic back pain No active medical problems Social History household members: children Smoking Status: Current every day smoker alcohol intake: current Meds Home Medications and Allergies Home Medications ?Medication ?Instructions ?Recorded ?Confirmed ?Type albuterol sulfate 2.5 mg/3 mL 2.5 mg inhalation Q6-8H PRN 10/14/24 10/14/24 History (0.083 %) solution for nebulization shortness of breath or wheezing albuterol sulfate 90 mcg/actuation 2 puff inhalation Q4H PRN wheezing 10/14/24 10/14/24 History aerosol inhaler beclomethasone dipropionate 80 1 inh inhalation BID 10/14/24 10/14/24 History mcg/actuation HFA breath activated aerosol (Qvar RediHaler) clonazepam 0.5 mg tablet 0.5 mg PO 3XD 10/14/24 10/14/24 History cyclobenzaprine 10 mg tablet 10 mg PO 3XD 10/14/24 10/14/24 History gabapentin 600 mg tablet 1,200 mg PO BEDTIME 10/14/24 10/14/24 History hydrochlorothiazide 25 mg tablet 25 mg PO DAILY 10/14/24 10/14/24 History levothyroxine 112 mcg tablet 112 mcg PO DAILY 10/14/24 10/14/24 History metoprolol succinate 25 mg 25 mg PO DAILY 10/14/24 10/14/24 History tablet,extended release 24 hr mirtazapine 30 mg tablet 30 mg PO ONCE PM 10/14/24 10/14/24 History omeprazole 20 mg capsule,delayed 40 mg PO QAM 10/14/24 10/14/24 History release trazodone 100 mg tablet 200 mg PO BEDTIME 10/14/24 10/14/24 History venlafaxine 75 mg capsule,extended 225 mg PO DAILY 10/14/24 10/14/24 History release 24 hr zolpidem 5 mg tablet 5 mg PO BEDTIME PRN insomnia 10/14/24 10/14/24 History Allergies Allergy/AdvReac Type Severity Reaction Status Date / Time adhesive Allergy Unknown Verified 10/14/24 13:22 Penicillins Allergy Verified 10/14/24 13:22 Review of Systems Review of Systems Narrative: Otherwise unremarkable except above Exam Vital Signs (past 8 hours): - 10/14/24 13:22 10/14/24 13:44 10/14/24 13:45 Temperature 97.4 F L Pulse Rate 83 75 75 Respiratory Rate 18 14 15 Blood Pressure 109/61 Pulse Oximetry 93 95 93 Oxygen Delivery Method Room Air Oxygen Flow Rate 10/14/24 13:45 10/14/24 14:00 10/14/24 14:00 Temperature Pulse Rate 75 Respiratory Rate Blood Pressure 114/68 104/67 Pulse Oximetry 92 Oxygen Delivery Method Oxygen Flow Rate 10/14/24 14:30 10/14/24 14:30 10/14/24 14:44 Temperature Pulse Rate 76 75 Respiratory Rate 16 Blood Pressure 117/69 Pulse Oximetry 94 93 Oxygen Delivery Method Nasal Cannula Room Air Oxygen Flow Rate 1 10/14/24 15:00 10/14/24 15:00 10/14/24 15:30 Temperature Pulse Rate 77 80 Respiratory Rate 18 20 Blood Pressure 120/58 L Pulse Oximetry 91 92 Oxygen Delivery Method Nasal Cannula Oxygen Flow Rate 1 10/14/24 15:30 10/14/24 16:00 10/14/24 16:00 Temperature Pulse Rate 80 Respiratory Rate 17 Blood Pressure 117/56 L 117/62 Pulse Oximetry 93 Oxygen Delivery Method Oxygen Flow Rate 10/14/24 16:33 10/14/24 17:35 Temperature 96.1 F L 96.0 F L Pulse Rate 81 80 Respiratory Rate 14 16 Blood Pressure 134/73 134/73 Pulse Oximetry 95 96 Oxygen Delivery Method Oxygen Flow Rate 2 0 Oxygen Delivery Method Nasal Cannula Oxygen Flow Rate 0 Narrative Exam Narrative: Alert fatigued female in no acute distress HEENT exam shows no bruising or other change. Mucous membranes dry. Neck supple without adenopathy lungs are clear heart is regular rate and rhythm abdomen is soft positive bowel sounds nontender. Patient does have a bruise on her sacrum but no other changes. Neurologic exam she is slow to speech but does make sense is articulating words. Appears to be nonfocal. Objective Labs 10/14/24 13:44 10/14/24 13:44 Labs: Laboratory Results - last 24 hr 10/14/24 10/14/24 13:31 13:44 WBC 9.7 RBC 4.62 Hgb 13.8 Hct 40.6 MCV 87.8 MCH 29.8 MCHC 33.9 RDW 15.2 H Plt Count 167 Neut % (Auto) 73.8 Lymph % (Auto) 15.8 L [place] % (Auto) 7.4 Eos % (Auto) 2.2 Baso % (Auto) 0.8 Neut # (Auto) 7200 H Lymph # (Auto) 1500 [place] # (Auto) 700 Eos # (Auto) 200 Baso # (Auto) 100 Sodium 129 L Potassium 3.2 L Chloride 91 L Carbon Dioxide 24 BUN 32 H Creatinine 2.87 H Estimated GFR 19 L BUN/Creatinine Ratio 11.1 Glucose 99 POC Whole Bld Glucose 116 H Calcium 9.3 Magnesium 2.0 Total Bilirubin 0.9 AST 53 H ALT 29 Alkaline Phosphatase 82 Troponin I < 0.012 NT-Pro-B Natriuret Pep 246 H Total Protein 8.0 Albumin 4.6 Globulin 3.4 Albumin/Globulin Ratio 1.4 Lipase 134 Procalcitonin 0.204 Assessment & Plan Assessment & Plan narrative: Renal failure. Probably secondary to 7-10 days of vomiting with minimal intake. Prerenal. Aggressively IV hydration and will obtain CT scan to evaluate kidney and other abdominal organs given her abdominal pain. Recheck a.m.. Decision on further treatment or different treatment based on response to therapy. Syncope. Assume this is secondary to renal failure and dehydration. But no other changes. Previous cardiac evaluation seems normal but will place on tele and follow. May need to consider a longer standing ZIO patch hope once we get fluid aggressively given we can feel better I think she is quite behind in her fluids and hopefully that is cause. Syncopal episodes with falls. Will obtain noncontrast CT scan to make sure stable. Patient with some neurologic changes today although I do not see them tonight but to be safe with her syncopal episodes and falls will need to check central evaluation Abdominal pain. Epigastric. Maybe slightly better today than yesterday. Possibility this is pancreatitis secondary to her GLP 1. Will obtain amylase and lipase. CT scan of abdomen to make sure no other abnormality continue PPI and re-evaluate a.m.. Dehydration. Moderate. Aggressive IV hydration with normal saline tonight and re-evaluate in a.m. Depression continue her usual antidepressants. I do think that her depression is having some impact on this. Will continue her current medication but she is continually over extended period and we have had discussions about this. Nausea and vomiting. Seems to be slightly improved will continue Zofran. Whether this is secondary to a GLP 1 possibility she does smoke marijuana although she has cut down. 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 We will follow. Hypokalemia. Got 1 dose of 40 mEq will give a 2nd dose and repeat potassium in the morning. Asthma. Continue usual inhalers albuterol nebulization if needed. Lungs overall been doing well. History of hypertension. Will hold hydrochlorothiazide will continue metoprolol and re-evaluate. DVT prophylaxis Lovenox patient has been somewhat immobile for the last week. Will like to protect from that. GI prophylaxis on PPI Code status full code Disposition. Hard to tell. Will see what studies show tomorrow and how she is doing. Would like to get least 24-48 hours of tele evaluation so that we know there is no cardiac issue arrhythmic conner we are just going to have to see how she responds however kidney function responds. Time-Based Coding :: [TOTAL MINUTES] spent with patient and on the chart (including review of chart, obtaining history, exam, reviewing outside data, placing orders, documenting exam and treatment plan, and counseling patient) on [DATE]. Quality VTE Deep Vein Thrombosis/Pulmonary Embolism Present on Admission: No
[2024-10-14] MEDS: MIRTAZAPINE 15 MG TABLET 30 MG PO (20:16)
[2024-10-14] MEDS: clonazePAM 0.5 MG TABLET PO (20:17)
[2024-10-14] MEDS: TRAZODONE 50 MG TABLET 200 MG PO (20:17)
[2024-10-14] MEDS: BUDESONIDE 0.5 MG/2 ML NEB INH (21:17)
[2024-10-14] MEDS: ALBUTEROL 2.5 MG/3 ML NEB (ADULT) INH (21:17)
[2024-10-15] VITALS (9 sets, daily range): BP systolic 102–123; BP diastolic 59–69; PULSE 67–80; RESP 15–16; TEMP 35.8–36.2; O2SAT 91–95
[2024-10-15 06:24] LABS: Add Manual Diff / Slide Review NO; Alanine Aminotransferase 22 IU/L (<35); Albumin 3.8 g/dL (3.5-5.0); Albumin Globulin Ratio 1.3 (1.0-2.8); Alkaline Phosphatase 69 U/L (38-126); Amylase 64 U/L (30-110); Aspartate Aminotransferase 37 IU/L (14-36); BUN Creatinine Ratio 10.5 (6-22); Basophils Absolute Auto 0 /uL (0-100); Basophils Percent Auto 0.7 % (0-2); Bilirubin Total 0.5 mg/dL (0.2-1.3); Blood Urea Nitrogen 23 mg/dL (7-17); Calcium 8.5 mg/dL (8.4-10.2); Carbon Dioxide 29 mmol/L (22-32); Chloride 106 mmol/L (98-107); Eosinophils Absolute Auto 200 /uL (0-450); Eosinophils Percent Auto 3.6 % (2-4); Estimated Glomerular Filt Rate 26 mL/min (>60); Globulin 2.9 g/dL (1.7-4.1); Glucose 70 mg/dL (70-99); HEMOLYSIS < 15 (0-50); Hematocrit 39.9 % (36-46); Hemoglobin 13.5 g/dL (12.0-16.0); Lipase 97 U/L (23-300); Lymphocytes Absolute Auto 1500 /uL (1100-4500); Lymphocytes Percent Auto 29.3 % (25-40); Mean Corpuscular HGB Conc 33.7 % (30-36); Mean Corpuscular Hemoglobin 29.8 PG (26-34); Mean Corpuscular Volume 88.4 fL (80-100); Monocytes Absolute Auto 400 /uL (0-900); Monocytes Percent Auto 8.1 % (3-14); Neutrophils Absolute Auto 2900 /uL (1500-7000); Neutrophils Percent Auto 58.3 % (50-75); Platelet Count 143 X10^3/uL (150-400); Potassium 3.3 mmol/L (3.4-5.1); Red Blood Cell Count 4.51 X10^6/uL (4.0-5.2); Red Cell Distribution Width 15.7 % (11.6-14.8); Sodium 141 mmol/L (137-145); Total Protein 6.7 g/dL (6.3-8.2)
[2024-10-15] MEDS: DEXTROSE 5%-0.9% NS 1,000 ML 150 ML IV (07:17)
[2024-10-15] MEDS: ALBUTEROL 2.5 MG/3 ML NEB (ADULT) INH (07:43)
[2024-10-15] MEDS: BUDESONIDE 0.5 MG/2 ML NEB INH ×2 (07:43→20:49)
[2024-10-15] MEDS: ENOXAPARIN 30 MG/0.3 ML SYRINGE SUBCUT (08:15)
[2024-10-15] MEDS: LEVOTHYROXINE 112 MCG TABLET PO (08:16)
[2024-10-15] MEDS: PANTOPRAZOLE DR 40 MG TABLET PO (08:16)
[2024-10-15] MEDS: VENLAFAXINE ER 75 MG CAP 225 MG PO (08:16)
[2024-10-15] MEDS: clonazePAM 0.5 MG TABLET PO ×3 (08:16→22:02)
[2024-10-15] MEDS: METOPROLOL ER 25 MG TABLET PO (08:16)
[2024-10-15] MEDS: POTASSIUM CHLORIDE 20 MEQ TAB 40 MEQ PO (09:41)
--- NOTE | 2024-10-15 10:21 | DIET.CONS ---
Dietary Consultation Note Admission Date: 10/14/2024 16:05 Assessment: 59 y F admitted for GABRIELLE, syncope. Dietitian screened for MNA. Met with pt at bedside. Reports tolerating clears so far. 1.5 months ago started Ozempic, reduced appetite with 1-2 small meals per day. Lost 40 lb. 2 weeks ago symptoms of N/V and unable to tolerated for than a few bites of food and some liquids. Ht: 167.64 cm Wt: 83.007 kg BMI: 29.5 UBW: 223 lb 2 months ago (183 lb + 40 lb, no chart weight hx) -18% weight loss in 2 months, severe Last BM: () MNA: 5 Reginald Score: 21 Diet: 10/14/24 Breakfast Clear Liquid Diet Diet Modifications: 10/14/24 Dinner Clear Liquid Diet Diet Modifications: 10/15/24 Breakfast General (Regular) Diet Diet Modifications: Food Texture: Level 7 - Regular Liquid Consistency: Level 0 - Thin Nutrition Percent Meal Consumed 100% 10/15/24 10:01 Percent Meal Consumed 100% 10/14/24 19:15 Labs: RBC 4.51 X10^6/uL (4.0-5.2) 10/15/24 04:10 Hgb 13.5 g/dL (12.0-16.0) 10/15/24 04:10 Hct 39.9 % (36-46) 10/15/24 04:10 Creatinine 2.19 mg/dL (0.52-1.04) H 10/15/24 04:10 NT-Pro-B Natriuret Pep 246 pg/mL (<125) H 10/14/24 13:44 Nutrition Diagnosis: Severe acute protein calorie malnutrition r/t decreased appetite with nausea and vomiting as evidenced by 18% weight loss within 3 months, severe and <50% of estimated energy needs per recall for 2 weeks, severe Interventions: -Monitoring diet tolerance with advancement -Reviewed protein sources and encouraged small freq meals that include protein source while having decreased appetite on Ozempic to avoid >2 lb weight loss per week EER: 75-85 g protein (1-1.25g/kg per PCM vs 18% kcals) 1700 kcals (20 kcals/kg per BMI) Monitoring/Evaluations: PO intakes Electronically Signed by: Shey Romo 10/15/24 10:21 Clinical Dietitian [address] [address]
--- NOTE | 2024-10-15 10:53 | CM.DANOTE ---
Initial DCP Assessment Note Pt is a 59 yo female, resident of [place], arrives after having multiple syncopal episodes, admitted OBS by Dr Aguilar for continued work up and management of : Acute kidney injury, Acute dehydration, Acute hyponatremia, Acute hypokalemia PCP: Sourav Aguilar Payer: David PPO Reviewed chart, pt discussed in multidisciplinary rounds this morning. Patient lives independently in [place] with family. No barriers identified at this time to patient's safe discharge home w/family to assist as needed; close outpatient f/u recommended. CM team will plan to follow closely in case any DC needs or concerns arise. TERRY Tavares Discharge Planning/Care Management CM Discharge Assessment Start: 10/14/24 16:20 Freq: Status: Active Protocol: Document 10/15/24 10:49 VIDA (Rec: 10/15/24 10:52 VIDA [id number]) Discharge Planning Assessment Assigned Discharge TERRY Coello Sales Intern DPOA/Assigned Rhonda Carine, sister Designee Name Contact Information [phone] Advance Directives? No Prior Living House Arrangements Household Members children Independent with ADL Yes 's Is patient alert and Yes oriented? Comment Home Barriers to No Discharge Discharge Plan Home Transportation Family Arrangement Referrals Initiated None needed
[2024-10-15] MEDS: ACETAMINOPHEN 325 MG TABLET 975 MG PO (11:03)
--- NOTE | 2024-10-15 13:40 | P.PN_ITS ---
Subjective Subjective Date Patient Seen: 10/15/24 Time Patient Seen: 13:42 Interval history: Patient feeling a little bit better today. No nausea no vomiting. Still feeling wobbly on her feet. No headaches. Stomach is feeling better. No abdominal pain. Otherwise no change. Tele with no abnormalities Exam Vital Signs (past 8 hours): - 10/15/24 07:00 10/15/24 07:44 10/15/24 08:16 Temperature Pulse Rate 79 77 Respiratory Rate 16 Blood Pressure 114/64 Pulse Oximetry 94 Oxygen Delivery Method Room Air Room Air Oxygen Flow Rate 10/15/24 09:08 10/15/24 09:34 10/15/24 12:00 Temperature 96.4 F L 97.1 F L Pulse Rate 80 80 73 Respiratory Rate 16 15 Blood Pressure 123/69 123/69 109/65 Pulse Oximetry 91 92 Oxygen Delivery Method Oxygen Flow Rate 0 0 Oxygen Delivery Method Room Air Oxygen Flow Rate 0 Narrative Exam Narrative: Alert female much less fatigued in appearance. HEENT exam is unremarkable neck supple without adenopathy lungs are clear heart is regular rate and rhythm Objective Labs 10/15/24 04:10 10/15/24 04:10 Labs: Laboratory Results - last 24 hr 10/14/24 10/14/24 10/15/24 13:31 13:44 04:10 WBC 9.7 5.0 RBC 4.62 4.51 Hgb 13.8 13.5 Hct 40.6 39.9 MCV 87.8 88.4 MCH 29.8 29.8 MCHC 33.9 33.7 RDW 15.2 H 15.7 H Plt Count 167 143 L Neut % (Auto) 73.8 58.3 Lymph % (Auto) 15.8 L 29.3 [place] % (Auto) 7.4 8.1 Eos % (Auto) 2.2 3.6 Baso % (Auto) 0.8 0.7 Neut # (Auto) 7200 H 2900 Lymph # (Auto) 1500 1500 [place] # (Auto) 700 400 Eos # (Auto) 200 200 Baso # (Auto) 100 0 Sodium 129 L 141 D Potassium 3.2 L 3.3 L Chloride 91 L 106 Carbon Dioxide 24 29 BUN 32 H 23 H Creatinine 2.87 H 2.19 H Estimated GFR 19 L 26 L BUN/Creatinine Ratio 11.1 10.5 Glucose 99 70 POC Whole Bld Glucose 116 H Calcium 9.3 8.5 Magnesium 2.0 Total Bilirubin 0.9 0.5 AST 53 H 37 H ALT 29 22 Alkaline Phosphatase 82 69 Troponin I < 0.012 NT-Pro-B Natriuret Pep 246 H Total Protein 8.0 6.7 Albumin 4.6 3.8 Globulin 3.4 2.9 Albumin/Globulin Ratio 1.4 1.3 Amylase 64 Lipase 134 97 Procalcitonin 0.204 PFSH Medical History (Updated 10/14/24 @ 16:16 by Kaley Ngo MD) Syncope COPD (chronic obstructive pulmonary disease) Restless legs syndrome Chronic back pain No active medical problems Social History household members: children Smoking Status: Current every day smoker alcohol intake: current Assessment & Plan Assessment & Plan narrative: Renal failure. Improved today. I still think this is probably secondary to her nausea and vomiting and dehydration which I think was probably pretty severe. But could have some to do with her weight loss medication DLP 1. Maybe the cause of all her nausea and vomiting. But I am not sold the whole thing is secondary to that. At this point CT scan shows dilated bladder but I think that was from all the fluids we are giving her she is urinating up to 500 cc at a time right now. Which does not make her feel uncomfortable I think we are okay but will follow. No evidence of significant dilatation 2 ureters so I do not think that is the cause. Did get better with fluids. Recheck a.m.. Will continue hydration at a lower level and go from there. Hopefully tomorrow things will be better and we can discontinue fluid. Syncope. Tele has been normal. Some of this has to do with her dehydration although I am not completely sure. She does have an implantable monitor so we need to get the gum mixer to review it with her syncopal episodes. No other change. Hoping part of it is just her dehydration. But she has had several episodes and will have to make sure. Syncopal episodes with falls and some weakness walking. I think this is all related to her dehydration CT scan shows no bleed if it persists will need MRI would like a renal failure to be better before we do that we will see how she goes PT evaluation today. Abdominal pain. Appears to be resolved. No other change. Will continue to follow. CT scan shows no definitive abnormality pancreas does not appear to be irritated. Will continue PPI for now. Positive Cologuard. Needs colonoscopy was set up. I do not think this has anything to do with her abdominal pain. Dehydration. Pretty severe. Will cut down to 125. Almost certainly this is most of her renal failure will continue to follow recheck a.m. hopefully been discontinue fluids in the morning. Depression. Continue usual medications. I do think stress is having some impact. But will see how things go. Nausea and vomiting. I do not think she had a viral episode probably either related to her marijuana smoking or her GLP 1 she has been offered she will P 1 now is feeling better and that is probably the cause but will see how things go. I do not want to restart that she understands that at least for now. Hypokalemia 1 more dose of 40 last night got another 1 this morning as per protocol will follow recheck a.m.. Asthma continue to follow History of hypertension stable without significant change. Will follow as outpatient. DVT prophylaxis on Lovenox GI prophylaxis on PPI Code status full. Disposition. I am hoping we can go home tomorrow would like to see her renal failure better tolerating p.o. goes and see how her physical stamina as. Hopefully that will be better tomorrow and we can discharge home. Not finding anything definitive at this time. Time-Based Coding :: [TOTAL MINUTES] spent with patient and on the chart (including review of chart, obtaining history, exam, reviewing outside data, placing orders, documenting exam and treatment plan, and counseling patient) on [DATE]. Quality VTE Deep Vein Thrombosis/Pulmonary Embolism Present on Admission: No
[2024-10-15] MEDS: SODIUM CHLORIDE 0.9% 1,000 ML 125 ML IV ×2 (13:47→22:03)
--- NOTE | 2024-10-15 17:47 | PT.IIE ---
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 Pts bedroom is on the second floor with R rail ascending. Pt denies owning FWW at home but may have a SPC or walking polls. Pt also owns 2 dogs 90# and 110#. M2 PT-IP Current Condition Start: 10/15/24 17:19 Freq: NEEDED Status: Active Protocol: Document 10/15/24 17:20 BL (Rec: 10/15/24 17:46 BL Laptop) Physical Therapy Current Condition Current Condition Evaluation Date 10/15/24 Treatment Diagnosis Dehydration( unsteadiness on feet) M3 PT-IP Subjective Start: 10/15/24 17:19 Freq: NEEDED Status: Active Protocol: Document 10/15/24 17:20 BL (Rec: 10/15/24 17:46 BL Laptop) Subjective Physical Therapy Visit Type Type Initial Evaluation Visit Start Time 16:30 Visit Stop Time 17:00 Number of CLINICAL SUPERVISOR Visits 0 Physical Therapy Visit Comments Patient Comments Pt semi ross in bed with son and sister present, pt alert and oriented x3 and agreeable to therapy session. Following session pt semi-ross in bed with bed alarm active, call light within reach and all needs met. Patient Goals return home M4 PT-IP Mobility and Gait Start: 10/15/24 17:19 Freq: NEEDED Status: Active Protocol: Document 10/15/24 17:20 BL (Rec: 10/15/24 17:46 BL Laptop) PT-Bed Mobility Assessment Rolling Type of Rolling Roll to Right Level of Assist Standby Assistance Supine to Sit Supine to Sit Standby Assistance Sit to Supine Sit to Supine Standby Assistance Scooting Scooting to Edge of Standby Assistance Bed Scooting Up and Down Standby Assistance in Bed PT-Transfer Assessment Sit to and From Stand Sit to and from Standby Assistance Stand Equipment Transfer Assistive Front Wheeled Walker Device Orthotic/Prosthetic No Devices or Brace: Transfers Transfer Destination Bed Transfer Technique Stand Step Pivot Transfer Ability Level of Assist Standby Assistance Comments Mobility Comments SBA for safety due to unsteadiness, demos retro pulsive behavior Gait Assessment Gait Gait Assistance Contact Guard Assist Required: Distance (Feet) 100 Assistive Devices Assistive Device Gait Belt,Front Wheeled Walker Orthotic/Prosthetic No Devices or Brace: Gait Deviations General Gait Pattern Ataxic Factors Limiting Gait Function Factors Limiting Incoordination,Poor Balance Gait Function Comments Gait Comments Pt ambulates with FWW properly adjusted x 100' demos difficulty managing FWW initially, demos R sided veering and requires increased time to complete with verbal cueing. Pt able to report feeling unsteady on her feet. Stair Climbing Assessment Comments Stair Climbing deferred this date due to unsteadiness, recommend pt Comments remain on first floor at home. PT-Balance Assessment Sitting Balance and Reactions Static Sitting Good Balance Ability Dynamic Sitting Fair Balance Ability Standing Balance and Reactions Static Standing Poor Balance Ability Dynamic Standing Poor Balance Ability Comments Other Balance Tests/ Pt unable to complete marching in place without UE Deviations/Treatment support, demos retro pulsive behavior with static : standing. Recommend FWW at DC. M5 PT-IP Objective Assessments Start: 10/15/24 17:19 Freq: NEEDED Status: Active Protocol: Document 10/15/24 17:20 BL (Rec: 10/15/24 17:46 BL Laptop) Orientation Orientation/Cognition Orientation Name,Month,Year,Place,Situation Comments slurred speech noted. Gross Range of Motion Lower Extremity ROM Assessment Within Functional Limits Strength Lower Extremity Strength Assessment Within Functional Limits Coordination Assessment Gross Coordination Gross Coordination Impaired Assessment Finger to Nose Test Minimal Impairment Heel on Mejias Test Minimal Impairment Sensation Assessment Sensation Gross Sensation WNL Light Touch Impaired Comments Sensation Comments mild impairments noted in R L3/4 myotome Muscle Tone Muscle Tone WNL Yes M7 PT-IP Assessment and Plan Start: 10/15/24 17:19 Freq: NEEDED Status: Active Protocol: Document 10/15/24 17:20 BL (Rec: 10/15/24 17:46 BL Laptop) PT Summary Assessment and Plan Potential Rehabilitation Good Potential Status of Condition Evolving at Evaluation Summary Impairments Balance,Coordination,Sensation,Bed Mobility,Transfers, Gait,Activity Tolerance Assessment Summary Pt presents with decreased strength and endurance as well as incoordination. Pt will benefit from skilled Physical Therapy intervention for strength and balance training in order to promote safe functional mobility for post acute setting. Discussed findings with pt this date and recommend 24/7 supervision at DC as well as FWW for safety due to instability. Goals Bed Mobility Goal Independent Transfer Goal Independent Gait Goal Independent Frequency of Treatment Frequency Of Once a Day Treatment Other frequency 3-5x wkly Treatment Plan Physical Therapy Bed Mobility Training,Transfer Training,Gait Training, Treatment Plan Therapeutic Exercise,Balance Retraining,Discharge Planning,Neuromuscular Re-ed,Coordination Retraining, Manual Therapy Weight Bearing Status Weight Bearing Full Weight Bearing Status Recommendations To Nursing Amount of Assist 1 Person Assist Needed Discharge Recommendations PT Discharge Home with 24/7 Assist Available Recommendations Equipment Needed for FWW Home Before Discharge Transportation Needs Private Vehicle at Discharge - PT assist SBA-CGA for all mobility due to balance and coordination deficits. Pt may also benefit from speech evaluation following MRI findings due to slurred speech .
[2024-10-15 18:12] LABS: Alanine Aminotransferase 23 IU/L (<35); Albumin 3.5 g/dL (3.5-5.0); Albumin Globulin Ratio 1.2 (1.0-2.8); Alkaline Phosphatase 64 U/L (38-126); Aspartate Aminotransferase 36 IU/L (14-36); BUN Creatinine Ratio 8.6 (6-22); Bilirubin Total 0.4 mg/dL (0.2-1.3); Blood Urea Nitrogen 14 mg/dL (7-17); Carbon Dioxide 27 mmol/L (22-32); Chloride 106 mmol/L (98-107); Estimated Glomerular Filt Rate 37 mL/min (>60); Globulin 2.9 g/dL (1.7-4.1); Glucose 108 mg/dL (70-99); HEMOLYSIS < 15 (0-50); Potassium 3.2 mmol/L (3.4-5.1); Sodium 141 mmol/L (137-145); Total Protein 6.4 g/dL (6.3-8.2)
--- NOTE | 2024-10-15 18:56 | DI.CT.S_ITS ---
PROCEDURE: CT ABDOMEN PELVIS WO CON INDICATIONS: abd pain vomiting renal failure TECHNIQUE: CT of the abdomen and pelvis was obtained without intravenous contrast. Coronal and sagittal reformats were performed. For radiation dose reduction, the following was used: automated exposure control, adjustment of mA and/or kV according to patient size. COMPARISON: None. FINDINGS: Image quality: Diagnostic. Lower Chest: No significant findings. ABDOMEN: Liver: No contour-deforming mass. Gallbladder: No radiopaque gallstones or wall thickening. Biliary ducts: No biliary dilation. Pancreas: No ductal dilation. Spleen: Size is within normal limits. Adrenal Glands: No adrenal nodules. Kidneys and Ureters: Minimal prominence of the renal collecting systems bilaterally. Stomach and Bowel: Normal colonic caliber, without significant wall thickening. Peritoneum: No abnormal intraperitoneal fluid. No free air. Ventral Wall: No significant hernia. Abdominal Nodes: No retroperitoneal or mesenteric adenopathy by size criteria. Vessels: Aorta and inferior vena cava are normal in size. PELVIS: Pelvic Organs: Unremarkable. Bladder: Significantly distended. Pelvic Nodes: No enlarged lymph nodes. Miscellaneous: No inguinal hernias are seen. Bones: No aggressive osseous abnormality. IMPRESSION: Markedly distended bladder with renal collecting systems bilaterally. Dictated by: Estelle Diaz M.D. on 10/15/2024 at 1:09 Approved by: Estelle Diaz M.D. on 10/15/2024 at 1:10
--- NOTE | 2024-10-15 19:16 | DI.CT.S_ITS ---
PROCEDURE: CT HEAD/BRAIN WO CON INDICATIONS: syncope with falls verbal changes TECHNIQUE: Noncontrast 4.5 mm thick angled axial sections acquired from the foramen magnum to the vertex, with coronal and sagittal reformats. For radiation dose reduction, the following was used: automated exposure control, adjustment of mA and/or kV according to patient size. COMPARISON: [facility], CT, CT HEAD/BRAIN WO CON, 11/13/2021, 10:49. FINDINGS: Image quality: Diagnostic. CSF spaces: Basal cisterns are patent. No extra-axial fluid collections. Ventricles are normal in size and shape. Brain: No midline shift. No intracranial mass effect or hemorrhage. Alexis- white matter interface is normal. Skull and face: Calvarium and visualized facial bones are intact, without suspicious lesions. Sinuses: Visualized sinuses demonstrate scattered areas of mucosal thickening particularly in the left sphenoid sinus. IMPRESSION: No acute intracranial pathology. Dictated by: Estelle Diaz M.D. on 10/15/2024 at 1:05 Approved by: Estelle Diaz M.D. on 10/15/2024 at 1:05
[2024-10-15] MEDS: TRAZODONE 50 MG TABLET 200 MG PO (22:02)
[2024-10-15] MEDS: MIRTAZAPINE 15 MG TABLET 30 MG PO (22:02)
[2024-10-16] VITALS (11 sets, daily range): BP systolic 93–130; BP diastolic 43–78; PULSE 60–76; RESP 16–18; TEMP 35.9–36.1; O2SAT 91–97
[2024-10-16 05:43] LABS: Add Manual Diff / Slide Review NO; Basophils Absolute Auto 0 /uL (0-100); Basophils Percent Auto 0.9 % (0-2); Eosinophils Absolute Auto 200 /uL (0-450); Eosinophils Percent Auto 3.9 % (2-4); Hematocrit 38.8 % (36-46); Lymphocytes Absolute Auto 1700 /uL (1100-4500); Lymphocytes Percent Auto 29.4 % (25-40); Mean Corpuscular HGB Conc 33.4 % (30-36); Mean Corpuscular Hemoglobin 29.9 PG (26-34); Mean Corpuscular Volume 89.6 fL (80-100); Monocytes Absolute Auto 400 /uL (0-900); Monocytes Percent Auto 7.6 % (3-14); Neutrophils Absolute Auto 3300 /uL (1500-7000); Neutrophils Percent Auto 58.2 % (50-75); Platelet Count 140 X10^3/uL (150-400); Red Blood Cell Count 4.33 X10^6/uL (4.0-5.2); Red Cell Distribution Width 15.7 % (11.6-14.8); White Blood Cell Count 5.7 X10^3/uL (4.5-11.0)
[2024-10-16 05:53] LABS: BUN Creatinine Ratio 6.5 (6-22); Blood Urea Nitrogen 9 mg/dL (7-17); Calcium 8.3 mg/dL (8.4-10.2); Carbon Dioxide 29 mmol/L (22-32); Chloride 107 mmol/L (98-107); Estimated Glomerular Filt Rate 45 mL/min (>60); Glucose 71 mg/dL (70-99); HEMOLYSIS < 15 (0-50); Magnesium 1.5 mg/dL (1.6-2.3); Potassium 2.9 mmol/L (3.4-5.1); Sodium 141 mmol/L (137-145)
[2024-10-16] MEDS: PANTOPRAZOLE DR 40 MG TABLET PO (06:31)
[2024-10-16] MEDS: SODIUM CHLORIDE 0.9% 1,000 ML 125 ML IV (06:31)
[2024-10-16] MEDS: METOPROLOL ER 25 MG TABLET PO (08:22)
[2024-10-16] MEDS: VENLAFAXINE ER 75 MG CAP 225 MG PO (08:23)
[2024-10-16] MEDS: ACETAMINOPHEN 325 MG TABLET 975 MG PO (08:23)
[2024-10-16] MEDS: ENOXAPARIN 30 MG/0.3 ML SYRINGE SUBCUT (08:23)
[2024-10-16] MEDS: LEVOTHYROXINE 112 MCG TABLET PO (08:23)
[2024-10-16] MEDS: BUDESONIDE 0.5 MG/2 ML NEB INH ×2 (08:51→19:12)
[2024-10-16] MEDS: ALBUTEROL 2.5 MG/3 ML NEB (ADULT) INH ×2 (08:52→19:12)
--- NOTE | 2024-10-16 09:54 | DI.MRI.S_ITS ---
PROCEDURE: MR HEAD/BRAIN WO/W CON INDICATIONS: new altered mentation and balance problems TECHNIQUE: Noncontrast axial T1 spin echo, axial T2 fast spin echo, sagittal and axial FLAIR, coronal T2 fast spin echo, axial gradient echo, axial diffusion and ADC through the brain. After the administration of contrast, axial and coronal and sagittal 3D VIBE or T1 spin echo with fat saturation through the brain. COMPARISON: [facility], CT, CT HEAD/BRAIN WO CON, 10/15/2024, 0:11. [facility], MR, MR HEAD/BRAIN WO/W CON, 01/13/2021, 8:46. FINDINGS: Image quality: Diagnostic, with note made of motion artifact. CSF Spaces: Basal cisterns are patent. No extra-axial fluid collections. Ventricles are normal in size and shape. Brain: No midline shift. No intracranial bleeds or masses. No abnormal intracranial enhancement. The brainstem appears normal. Diffusion-weighted images demonstrate no acute infarct. No chronic ischemic insults. Normal intravascular flow voids are present. Skull and face: Calvarial marrow is normal in signal. Orbits appear normal. Sinuses: Focal moderate mucosal thickening can be seen within the left sphenoid sinus. Milder mucosal thickening can be seen elsewhere within the paranasal sinuses. IMPRESSION: No findings of acute or subacute infarction can be seen. Is No masses or abnormal enhancement can be seen. Dictated by: Hammad Gale M.D. on 10/16/2024 at 14:10 Approved by: Hammad Gale M.D. on 10/16/2024 at 14:11
--- NOTE | 2024-10-16 10:45 | PT.IPTN ---
Physical Therapy Treatment Note M2 PT-IP Current Condition Start: 10/15/24 17:19 Freq: NEEDED Status: Active Protocol: Document 10/16/24 08:28 SP (Rec: 10/16/24 10:44 SP [id number]) Physical Therapy Current Condition Current Condition Evaluation Date 10/15/24 Treatment Diagnosis Dehydration( unsteadiness on feet) M3 PT-IP Subjective Start: 10/15/24 17:19 Freq: NEEDED Status: Active Protocol: Document 10/16/24 08:28 SP (Rec: 10/16/24 10:44 SP [id number]) Subjective Physical Therapy Visit Type Type Treatment Note Visit Start Time 08:28 Visit Stop Time 08:45 Notes Vitals just taken by nursing before arrival: RUE BP: 130/78 HR 75. Sister Fanny (a familiar nurse acute staffed at [facility]) and son in room, observed and supported tx with baseline and changes seen now feedback and IV pole mgt, sister and son state can assist patient with all needs at home and acquire FWW if needed. Sister and son states prefer pt to go home at [place] and attend outpatient PT/OT/MATCH MAKER vs HHPT or acute rehab facility due to have 2 active dogs that really attached to patient and going through separation anxiety and HHPT might be to challenging with dogs in home, patient in agreement. Number of WAREHOUSE DISTRIBUTION MANAGER Visits 1 Physical Therapy Visit Comments Patient Comments Pt slight elevated in bed at arrival, agreeable to working with PT. Patient Goals Return home and agreeable go to outpatient therapy vs suggestion SNF/Acute Rehab for more aggressive multi- discipline therapy. M4 PT-IP Mobility and Gait Start: 10/15/24 17:19 Freq: NEEDED Status: Active Protocol: Document 10/16/24 08:28 SP (Rec: 10/16/24 10:44 SP [id number]) PT-Bed Mobility Assessment Rolling Type of Rolling Roll to Right Level of Assist Standby Assistance Supine to Sit Supine to Sit Standby Assistance,1 Person Assistance,Head of Bed Elevated,Bedrails Sit to Supine Sit to Supine Standby Assistance,1 Person Assistance,Head of Bed Elevated,Bedrails Scooting Scooting to Edge of Standby Assistance Bed Scooting Up and Down Standby Assistance in Bed PT-Transfer Assessment Sit to and From Stand Sit to and from Contact Guard Assistance,Minimal Assistance,1 Person Stand Assistance,Use of Upper Extremities Equipment Transfer Assistive Gait Belt,Front Wheeled Walker Device Orthotic/Prosthetic No Devices or Brace: Transfers Transfer Destination Bed Transfer Technique ambulate with FWW Transfer Ability Level of Assist Contact Guard Assistance,Minimal Assistance,1 Person Assistance,Use of Upper Extremities Comments Mobility Comments Pt has decreased strength and body trunk spacial awareness during mobility, takes time to process and response to questions throughout tx (appropriately answers), tends to look to her sister to help answer questions at times. Sister states not her baseline past few days. Completes elevated supine>sit and scoot to EOB close SBA, little trunk instability lateral/retro but no LOB, heavy UE support on bed. STS CG-Min A for trunk stability with cues for increased SHALOM throughout tx for improved trunk midline stability demonstrates little lateral and retro into and during standing, redirection cues for push from bed not grab FWW. Gait in room and progressed into hallway approx 150 ft total with continued cues for increased SHALOM (tends to tandem or scissor step at times) and midline within FWW during turns, 15%A support at gait belt for trunk stability while Moderate UE WB support on FWW. Pt completed portable step mgt 25>10% A for trunk stability, cues for TKE ascend and controlled flexion descend 1 HR support, improves stability with reps. Pt returned to bed with bed alarmed and all needs in reach , family in room before left. WAREHOUSE DISTRIBUTION MANAGER discussed with family and pt, would benefit from acute rehab vs home with outpatient therapy with discussion to allow aggressive return to strength and functional mobility. Sister can get FWW for pt. Pt would benefit from continued skiled PT acute, will continue to assess progress. Gait Assessment Gait Gait Assistance Contact Guard Assist,Minimum Assistance,1 Person Assist Required: Distance (Feet) 150 Able to Maintain Yes Weight Bearing Status During Gait Assistive Devices Assistive Device Gait Belt,Front Wheeled Walker Orthotic/Prosthetic No Devices or Brace: Gait Deviations General Gait Pattern Ataxic,Decreased Stride Length,Decreased Feet Clearance ,Lateral Trunk Lean,Narrow Based Gait Factors Limiting Gait Function Factors Limiting Decreased Strength,Difficulty Following Directions, Gait Function Incoordination,Poor Balance,Poor Safety Awareness Comments Gait Comments Cues for increase SHALOM forward and during during turns, awareness of body midline in FWW. Demonstrates trunk sways retro and lateral each direction at times without self awareness, not her baseline. Stair Climbing Assessment Evaluation Level of Assist On Contact Guard Assistance,Minimal Assistance,1 Person Stairs Assistance Devices Stair Climbing Right Railing Assistive Devices Technique/Endurance Stair Climbing Descend Direction Stair Climbing Step to Step Technique Number of Steps 1 Climbed Stair Climbing Set # 8 Repetitions (reps) Comments Stair Climbing Cued TKE into ascend step and slow eccentric flexion Comments stepping down with 25>10%A with R HR for awareness mobility to enter home and if needed walk to 2nd floor to her bedroom. She can stay on main level if needed. PT-Balance Assessment Sitting Balance and Reactions Static Sitting Good Balance Ability Dynamic Sitting Fair Balance Ability Standing Balance and Reactions Static Standing Poor Balance Ability Dynamic Standing Poor Balance Ability Device Used FWW M5 PT-IP Objective Assessments Start: 10/15/24 17:19 Freq: NEEDED Status: Active Protocol: Document 10/15/24 17:20 BL (Rec: 10/15/24 17:46 BL Laptop) Orientation Orientation/Cognition Orientation Name,Month,Year,Place,Situation Comments slurred speech noted. Gross Range of Motion Lower Extremity ROM Assessment Within Functional Limits Strength Lower Extremity Strength Assessment Within Functional Limits Coordination Assessment Gross Coordination Gross Coordination Impaired Assessment Finger to Nose Test Minimal Impairment Heel on Mejias Test Minimal Impairment Sensation Assessment Sensation Gross Sensation WNL Light Touch Impaired Comments Sensation Comments mild impairments noted in R L3/4 myotome Muscle Tone Muscle Tone WNL Yes M7 PT-IP Assessment and Plan Start: 10/15/24 17:19 Freq: NEEDED Status: Active Protocol: Document 10/16/24 08:28 SP (Rec: 10/16/24 10:44 SP [id number]) PT Summary Assessment and Plan Potential Rehabilitation Good Potential Status of Condition Evolving at Evaluation Summary Impairments Balance,Coordination,Sensation,Bed Mobility,Transfers, Gait,Activity Tolerance Assessment Summary Pt continues to demonstrated decreased trunk and LE strength into standing with FWW for support with requiring outside assist for mobility and min cues for increased SHALOM, centering body within FWW, she tends to lateral/retro lean/tandem vs scissor step at times, not her baseline of I without AD. She has delayed response for processing to answer questions and looks to her family to help if needed. She would benefit from acute rehab vs home outpatient therapy 13/11 assist family requesting. Family can acquire FWW needed at this time. Continue recommend acute skilled PT, will continue to assess progress. Goals Bed Mobility Goal Independent Transfer Goal Independent Gait Goal Independent Frequency of Treatment Frequency Of Once a Day Treatment Other frequency 3-5x wkly Treatment Plan Physical Therapy Bed Mobility Training,Transfer Training,Gait Training, Treatment Plan Therapeutic Exercise,Balance Retraining,Discharge Planning,Neuromuscular Re-ed,Coordination Retraining, Manual Therapy Weight Bearing Status Weight Bearing Full Weight Bearing Status Recommendations To Nursing Amount of Assist 1 Person Assist Needed Discharge Recommendations PT Discharge Home with 13/11 Assist Available,Acute Rehab,Outpatient Recommendations PT Equipment Needed for sister can acquire FWW if needed Home Before Discharge Transportation Needs Private Vehicle,Wheelchair/Cabulance at Discharge - PT assist Min A for all mobility wtih FWW, due to balance and coordination deficits. Pt may also benefit from speech and OT evaluation following MRI findings due to delayed cognitive response to questioning and decreased trunk stability, not her baseline of I no AD.
[2024-10-16] MEDS: POTASSIUM CHLORIDE 20 MEQ TAB 40 MEQ PO ×2 (11:03→15:59)
[2024-10-16] MEDS: MAGNESIUM OXIDE 400 MG TABLET PO (11:04)
--- NOTE | 2024-10-16 14:03 | EKG_ITS ---
[address] [address] Test Date: 2024-10-16 Pat Name: Ariadne Stearns Department: [facility] Room: 225 Gender: Female Advertising Display Rotator: MARY JANE BABIN : 1965 Requested By: Order Number: [id number] Reading MD: Robert Mccabe Measurements Intervals [place] Rate: 66 P: 58 FL: 176 QRS: 33 QRSD: 84 T: 64 QT: 456 QTc: 478 Interpretive Statements Normal sinus rhythm Electronically Signed On 10-16-2024 16:28:06 PDT by Robert Mccabe
--- NOTE | 2024-10-16 15:15 | ST.IPIE ---
Visit Care Team Role Provider Type Kaley Ngo MD Emergency Provider Physician Referring Provider Specialty: Emergency Medicine Address: [address] [place] [address], [place], [address] Email: Sourav Aguilar MD Admit Provider Physician Attending Provider Family Provider Primary Care Provider Specialty: Family Practice Address: [address] [place] [address], [address], [place], [address] Email: [email or web address] Medical History (Last Updated 10/14/24 @ 14:08 by Kaley Ngo MD) Chronic back pain (Medical) COPD (chronic obstructive pulmonary disease) (Medical) No active medical problems (Medical) Restless legs syndrome (Medical) Syncope (Medical) Unexplained, ongoing since 2022 ST Initial Evaluation Report WINDOW CLEANER Adult Cognitive Linguistic Eval Start: 10/16/24 14:05 Freq: Status: Active Protocol: Document 10/16/24 14:05 SS (Rec: 10/16/24 14:27 SS Desktop) Adult Cognitive Linguistic Evaluation Session Time Visit Start Time 13:45 Visit Stop Time 14:05 Total Visit Minutes 20 Referral Referring Provider Pepe Beard MD Reason for Referral Cognitive concerns Setting Assessment Location Acute Care Visit Type Note Type Initial evaluation Patient Information Identification Type Name Patient History Per H&P: Patient is a 59-year-old female well known to me who presents with syncopal episode. Patient has had proximally 2 weeks of nausea vomiting. Unable to take much fluids. Severe fatigue. Basically laid at home and slept last week. Took her medicines but did not take much else. Not a lot intake. No urinary changes. No pain with urination. Fevers chills or other change. Patient had some abdominal pain. Patient had been taking a GLP 1 and has not taken that for 2 weeks. Patient has had several episodes of syncope she was down at her workup place and pulled down on a bar and then will passed out. Witnessed with no seizure activity or other change. Patient was seen yesterday in clinic. Had some abdominal pain. Her abdominal pain had been mostly epigastric. With no radiation or other change. She has had no hematemesis. It has all been clear fluid has had persistent nausea but started to feel better Sunday. It has started to eat a little but not much. Patient had had no other significant change. She denies headaches visual symptoms. Today she woke up feeling kind of slow. Had some feelings of not being able to kind of move her legs right. Apparently when she walked into work today she was having some trouble with her gait. She was not speaking in full sentences. She was sitting at her desk had another syncopal episode and then was brought to the emergency room. No other change or complaint. Cognitive-communication evaluation completed to assess current function following reported PT concerns re: difficulty with following directions. 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 Her sister Fanny (a familiar nurse acute staffed at [facility]) was at bedside. Pt was alert and oriented x4. She expressed she has not noted any changes from baseline re: cognitive-communication. Her sister noted that she has demonstrated mild response latency and is at times forgetful (e.g., asks the same questions after a 20-minute delay). Pt lives at home with her two sons. BASELINE LEVEL OF FUNCTION Medication Management: independent Electric Transfer Operator: independent Household Management: independent Driving: independent Running Errands: independent Mental Status Alert,Responsive,Cooperative Informal Assessment Receptive Language Yes Normal Expressive Language Yes Normal Pragmatic Language Yes Normal Speech Normal Yes Cognition Normal Yes Formal Assessment Standardized Test/ [facility] Mental Status (UMS) Screener Type Administration Complete Results The [facility] Mental Status (UMS) Examination was used to obtain information regarding the patient?s cognitive abilities. The SLUMS consists of ten questions that assess delayed recall, verbal fluency, comprehension, calculations, attention, working memory, and orientation. A scored is calculated from a possible 30 points. Scores fall in one of three ranges describing a patient?s level of impairment based upon level of education. Patients who have completed high school are expected to score slightly higher on this test than those who have not. For someone with a high school education, WNL is 27-30. The SLUMS was completed on this date. Subtest scores are as follows: Orientation: 3/3 Immediate Recall: 5/5 (not calculated in total score) Numeric Calculation: 3/3 Divergent Namin/3 (total of 17) Delayed Recall: 4/5 Attention/Registration with Digit Span: 1/2 Clock Drawing (Visuospatial & Executive Functionin/ 4 Geometric Figures: 4/2 Short Story (memory/recall): 8/8 With a high school education, a total score of 28/30 falls within normal limits range which is indicative within normal limits cognitive-communication function. Findings/Results Language Function Within normal limits Cognitive Function Within normal limits Findings Pt presents with within normal level cognitive- communication function at this time. Suspect mild cognitive-communication difficulty, which appears to be resolving, per family report, is related to overall medical status. Anticipate that it will continue to resolve with medical management. Given informal observation, pt was able to participate in conversation , recalled short-term information, and was able to report on baseline function without overt difficulty. No changes to speech or language were noted at this time. Speech was 100% intelligible and pt was able to communicate with complete and grammatically complex sentences. WINDOW CLEANER reviewed assessment results with pt and family and recommended supervision at home with IADLs initially as needed. Additionally, recommended pt follow up at outpatient level if she continues to notice a change from baseline. Pt and family expressed understanding and were agreeable to recommendations. No further treatment is recommended at this time. WINDOW CLEANER to follow up if change is noted in overall cognitive- communication function. Plan of Care Speech-Language No Treatment Patient/Caregiver Described results of evaluation,Patient expressed Education understanding of evaluation,Patient expressed agreement with goals and treatment plans,Family/caregivers expressed understanding of evaluation,Family/caregivers expressed agreement with goals and treatment plan Discharge Home Recommendations
[2024-10-16] MEDS: IBUPROFEN 400 MG TABLET PO (15:59)
--- NOTE | 2024-10-16 16:51 | OT.IP.EVAL ---
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 Activities of Daily Pt able to do all ADL, IADL, and works fulltime. Living and IADL's Social History Household Members children Living Arrangements House Number of Floors ( Two Floors Floors) Number of Stairs To 2 steps from the carport and use of door jab to assist Enter/Railing? to get in. Pt has 14 steps with right hand rail to get up to her bedroom level. Home Environment Standard Height Toilet,Walk in Shower Employment Status [employer] Employed Additional Social Pt lives in a two story home with two sons at home, one History Comment of which does not work. Pts bedroom is on the second floor with R rail ascending. Pt denies owning FWW at home but may have a SPC or walking polls. Pt also owns 2 dogs 90# and 110#. M2 OT-IP Current Condition Start: 10/16/24 16:18 Freq: Status: Active Protocol: Document 10/16/24 16:18 [facility] (Rec: 10/16/24 16:51 [facility] Desktop) Occupational Therapy Current Condition Current Condition Evaluation Date 10/16/24 Treatment Diagnosis Renal failure Diagnosis Onset Date 10/16/24 M3 OT- IP Subjective and Pain Start: 10/16/24 16:18 Freq: Status: Active Protocol: Document 10/16/24 16:18 [facility] (Rec: 10/16/24 16:51 [facility] Desktop) OT- Subjective Occupational Therapy Visit Type Type Initial Evaluation Visit Start Time 15:00 Visit Stop Time 15:45 Occupational Therapy Visit Comments Patient Comments Pt agreed to do OT eval. Pt's sons and sister ( acute care RN here at [facility]) present. Patient/Caregiver To go home. Goals OT Pain Assessment Pain When Pain Assessed At Rest Pain Present Pain Present Denied Pain M4 OT- IP ADL's Start: 10/16/24 16:18 Freq: Status: Active Protocol: Document 10/16/24 16:18 [facility] (Rec: 10/16/24 16:51 [facility] Desktop) OT DCD-Osha-Npspjyx Comments OT Self-Feeding Not at meal time. Comments OT ADL-Grooming General Evaluation Grooming Ability Standby Assistance Areas Needing Retrieving/Set-up of Grooming Items Assistance Comments OT Grooming Comments Able to do with FWW in front of her. Pt tends to lean on the counter for balance. OT ADL-Oral Care General Eval Oral Care Ability Independent Comments Oral Care Comments Increased time and then aware cup on the right side of the counter. OT ADL-Dressing General Eval Lower Body Dressing Standby Assistance Ability Comments OT Dressing Comments Pt able cross her legs over to maxx/doff socks. At this time due to unsteadiness on her feet may need CGA for balance for LB dressing needs or having one hand on surfaces while other hand assists with clothing needs. OT ADL-Toileting Comments OT Toileting Not performed. Pt aware to call for assistance if Comments having to get up. OT ADL-Bathing Comments OT Bathing Comments Pt will benefit from a shower chair and supervision. M5 OT- IP IADL's Start: 10/16/24 16:18 Freq: Status: Active Protocol: Document 10/16/24 16:18 [facility] (Rec: 10/16/24 16:51 [facility] Desktop) OT-Instrumental Activities of Daily Living Deficits IADL Deficits Deficits Identified Home Safety Awareness Awareness of Need Decreased Awareness for Assistance at Home Ability to Problem Able to Problem Solve Solve Emergency Situations Home Safety Comments Pt tends to states that she is fine for needs. Medication Management Medication Pt would benefit from supervision. Pt's sister feels Management Comments that she is taking too much medications. Meal Preparation Meal Preparation Pt will benefit from assist. Comments Logistician Logistician Pt will benefit from assist. Comments Driving Driving Concerns Identified Regarding Safety Driving Comments Suggested pt not drive at this time as pt not feeling well and was orthrostatic. M6 OT- IP Functional Cognition Start: 10/16/24 16:18 Freq: Status: Active Protocol: Document 10/16/24 16:18 [facility] (Rec: 10/16/24 16:51 [facility] Desktop) Cognitive Factors Limiting Selfcare Function Cognitive Ability Level of Alertness Alert Patient Orientation Name,Age,Birthday,Month,Date,Year,Day of Week,Place, Situation Attention Span Capable of Focused Attention,Capable of Sustained Ability Attention Ability to Follow Able to Follow Multi-Step Commands Commands Memory Description No Deficits Noted Cognitive Comments Cognitive Assessment Per pt's sister scored 28/30 on the SLUMS. Pt scored 73 Comments seconds on [place] [employer] which is 50% for her age. Pt score implies normal but not perfect score for visual attention, speed of processing, mental flexibility, executive functioning, and problem solving . Pt educated on the importance on trying to take care of herself as pt eventually admit does not do well for drinking water, eating appropriately- per pt's son pt snack and likes sugary foods. Educated pt to take her time getting out of bed and more her legs prior to standing up. Pt admits uses surfaces to get to the bathroom as she is unsteady. Pt's sister states that pt fell and hit her face 2 years ago and since that time has been falling and unsteady on her feet at times but more so since having nausea and vomiting. OT- Vision and Hearing OT- Hearing Assessment OT- Hearing WFL Assessment OT- Vision Assessment Visual Acuity Glasses For Reading Visual Attentiveness WFL Occular Pursuits WFL Visual Convergence WFL Vision Assessment Pt initially having trouble with right lower quadrant. Comments M7 OT- IP Mobility and Balance Start: 10/16/24 16:18 Freq: Status: Active Protocol: Document 10/16/24 16:18 [facility] (Rec: 10/16/24 16:51 [facility] Desktop) OT- Bed Mobility Assessment Supine to Sit Supine to Sit Assist Independent Sit to Supine Sit to Supine Assist Independent OT-Transfer Assessment Sit to and From Stand Sit to and from Contact Guard Assistance Stand Transfers Transfer Ability Contact Guard Assistance Technique Transfer Destination Bed Transfer Technique Stand Step Pivot Devices Transfer Assistive Gait Belt,Front Wheeled Walker Devices Comments Mobility Comments Pt independent for bed mobility and CGA for sit to stand and to walk to the sink and back with the FWW. Supine 114/64, sitting 112/67, standing 88/57, 99/66 and feeling unsteady and back sitting 126/73. Pt complaining of being more unsteady when looking up to the left. Per pt has cervical issues prior. Pt to assess vertigo tomorrow. OT- Balance Assessment Sitting Balance and Reactions Static Sitting Normal Balance Ability Dynamic Sitting Good Balance Ability Standing Balance and Reactions Static Standing Fair Balance Ability Dynamic Standing Poor Balance Ability M8 OT- IP Objective Assessments Start: 10/16/24 16:18 Freq: Status: Active Protocol: Document 10/16/24 16:18 [facility] (Rec: 10/16/24 16:51 [facility] Desktop) OT Gross Range of Motion Upper Extremity Range of Motion Assessment Within Functional Limits OT Strength Upper Extremity Strength Assessment Within Functional Limits OT- Coordination Assessment Upper Extremity Finger to Nose Test Left UE Impaired Finger Tapping Test Left UE Impaired Comments Coordination 9 hole peg test 26 secs RUE, 32 sec LUE implies below Comments 10% for her age. Decreased proprioception for right hand. OT-Muscle Tone Assessment Muscle Tone WNL Yes OT Sensation Assessment Comments Summary Comments Intact for light touch M9 OT- IP Assessment and Plan Start: 10/16/24 16:18 Freq: Status: Active Protocol: Document 10/16/24 16:18 [facility] (Rec: 10/16/24 16:51 [facility] Desktop) OT Summary Assessment and Plan Potential Rehabilitation Good Potential Analytic Complexity Moderate at Evaluation Summary OT Impairments Balance,Coordination,Functional Mobility,Grooming, Dressing,Toileting,Bathing,Toilet Transfers,Shower Transfers,Activity Tolerance Progress Towards Slow Progress due to Medical Issues,Slow Progress due Goals to Activity Tolerance Assessment Summary Pt MOD complexity and main barriers are decreased balance, having symptoms and orthrostatic readings 114/ 64 supine, sitting 105/64 and 114/64 , and standing 88/ 57,96/66, and 99/66, and back to sitting 126/73. Pt would benefit from 24/7 available assist at home and outpt PT. Pt's sister expressed concerns that pt is not taking care of herself and always states that she is , fine. In addition pt's sister is concern that pt may be on too much medications as well. Goals Self-Feeding Goal Independent Grooming Goal Independent Dressing Goal Independent Toileting Goal Independent Bathing Goal Independent Toilet Transfer Goal Independent Shower Transfer Goal Independent Days to Meet Goals 5 Frequency of Treatment Other frequency 5x/week Treatment Plan OT Treatment Plan ADL Training,Functional Mobility,Patient/Family Education,Discharge Planning Other Treatment Shower, ACL Recommendations and Next Treatment Focus Discharge Recommendations OT Discharge Home with 24/7 Assist Available,Outpatient PT Recommendations Home Equipment Needs FWW, shower chair Transportation Needs Private Vehicle at Discharge
--- NOTE | 2024-10-16 17:05 | PM.PN.1 ---
Subjective Subjective Date Patient Seen: 10/16/24 Time Patient Seen: 09:00 Interval history: Patient feels a bit better today but still quite wobbly on her feet having some processing difficulty sister at bedside who is a nurse reports she is not making sense at her usual level requiring maximal cuing for movement they are quite concerned for possible recent stroke this has been going on for about 2 weeks now plan had been to get an MRI when her kidneys are better her kidneys are improving notably with IV hydration I think they are in range we can get the MRI today. Exam Vital Signs (past 8 hours): - 10/16/24 12:05 10/16/24 16:08 Temperature 97.0 F L 97.0 F L Pulse Rate 74 68 Respiratory Rate 18 16 Blood Pressure 130/77 114/72 Pulse Oximetry 96 97 Oxygen Flow Rate 0 0 Oxygen Delivery Method Room Air Oxygen Flow Rate 0 Narrative Exam Narrative: Resting comfortably in bed with sister at bedside Resp Other: Clear to auscultation bilaterally Cardio Other: Mildly tachycardic with regular rhythm S1-S2 GI Other: Soft nontender active bowel sounds Neuro Other: Alert awake and oriented x3 moving all limbs independently cranial nerves 2-12 grossly intact no obvious lateralizing features Extrem Other: No pedal edema Objective Labs 10/16/24 04:40 10/16/24 04:40 Labs: Laboratory Results - last 24 hr 10/15/24 10/16/24 17:55 04:40 WBC 5.7 RBC 4.33 Hgb 13.0 Hct 38.8 MCV 89.6 MCH 29.9 MCHC 33.4 RDW 15.7 H Plt Count 140 L Neut % (Auto) 58.2 Lymph % (Auto) 29.4 [place] % (Auto) 7.6 Eos % (Auto) 3.9 Baso % (Auto) 0.9 Neut # (Auto) 3300 Lymph # (Auto) 1700 [place] # (Auto) 400 Eos # (Auto) 200 Baso # (Auto) 0 Sodium 141 141 Potassium 3.2 L 2.9 L Chloride 106 107 Carbon Dioxide 27 29 BUN 14 9 Creatinine 1.62 H 1.38 H Estimated GFR 37 L 45 L BUN/Creatinine Ratio 8.6 6.5 Glucose 108 H 71 Calcium 8.0 L 8.3 L Magnesium 1.5 L Total Bilirubin 0.4 AST 36 ALT 23 Alkaline Phosphatase 64 Total Protein 6.4 Albumin 3.5 Globulin 2.9 Albumin/Globulin Ratio 1.2 COUNT INCLUDES THE [facility] Medical History (Updated 10/14/24 @ 16:16 by Kaley Ngo MD) Syncope COPD (chronic obstructive pulmonary disease) Restless legs syndrome Chronic back pain No active medical problems Social History household members: children Smoking Status: Current every day smoker alcohol intake: current Assessment & Plan Assessment & Plan narrative: # acute renal failure Continues to improve with IV hydration agree this is likely secondary to nausea vomiting dehydration GLP 1 we will reduce fluid rate today she is still not eating very much. #Syncope/fall No recurrence. 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 Continue to hold GLP-1 #Hypokalemia Suspect this is secondary to aggressive IV hydration we will reduce fluids continue to orally replete and recheck morning #acquired hypothyroidism stable continue home meds. #Asthma Stable continue to follow #Primary hypertension #orthostatic hypotension Systolic drops over 20 points on standing - she has been taking hctz and beta ceferino stable without significant change. Monitor and hydrate. DVT prophylaxis on Lovenox GI prophylaxis on PPI PCT: Lauren Code status full. Disposition: Pending MRI reports and K improvement - see how she feels in the morning Time-Based Coding :: [TOTAL MINUTES] spent with patient and on the chart (including review of chart, obtaining history, exam, reviewing outside data, placing orders, documenting exam and treatment plan, and counseling patient) on [DATE]. Quality VTE Deep Vein Thrombosis/Pulmonary Embolism Present on Admission: No
[2024-10-16] MEDS: SODIUM CHLORIDE 0.9% 1,000 ML 84 ML IV (17:48)
[2024-10-16] MEDS: MIRTAZAPINE 15 MG TABLET 30 MG PO (22:04)
[2024-10-16] MEDS: TRAZODONE 50 MG TABLET 200 MG PO (22:04)
[2024-10-17] VITALS (8 sets, daily range): BP systolic 128–138; BP diastolic 70–83; PULSE 67–73; RESP 16–18; TEMP 35.9–36.4; O2SAT 93–97
[2024-10-17 05:07] LABS: Add Manual Diff / Slide Review NO; Basophils Absolute Auto 0 /uL (0-100); Basophils Percent Auto 0.8 % (0-2); Eosinophils Absolute Auto 200 /uL (0-450); Eosinophils Percent Auto 3.7 % (2-4); Hematocrit 39.2 % (36-46); Hemoglobin 13.1 g/dL (12.0-16.0); Lymphocytes Absolute Auto 1900 /uL (1100-4500); Lymphocytes Percent Auto 34.1 % (25-40); Mean Corpuscular HGB Conc 33.3 % (30-36); Mean Corpuscular Hemoglobin 29.7 PG (26-34); Mean Corpuscular Volume 89.2 fL (80-100); Monocytes Absolute Auto 500 /uL (0-900); Monocytes Percent Auto 8.4 % (3-14); Neutrophils Absolute Auto 2900 /uL (1500-7000); Platelet Count 166 X10^3/uL (150-400); Red Cell Distribution Width 15.5 % (11.6-14.8); White Blood Cell Count 5.4 X10^3/uL (4.5-11.0)
[2024-10-17 05:20] LABS: Alanine Aminotransferase 22 IU/L (<35); Albumin 3.7 g/dL (3.5-5.0); Albumin Globulin Ratio 1.2 (1.0-2.8); Alkaline Phosphatase 76 U/L (38-126); Aspartate Aminotransferase 32 IU/L (14-36); BUN Creatinine Ratio 6.2 (6-22); Bilirubin Total 0.5 mg/dL (0.2-1.3); Blood Urea Nitrogen 8 mg/dL (7-17); Calcium 8.8 mg/dL (8.4-10.2); Carbon Dioxide 28 mmol/L (22-32); Chloride 106 mmol/L (98-107); Estimated Glomerular Filt Rate 48 mL/min (>60); Globulin 3.1 g/dL (1.7-4.1); Glucose 76 mg/dL (70-99); HEMOLYSIS < 15 (0-50); Potassium 3.3 mmol/L (3.4-5.1); Sodium 143 mmol/L (137-145); Total Protein 6.8 g/dL (6.3-8.2)
[2024-10-17 05:21] LABS: Magnesium 1.5 mg/dL (1.6-2.3)
[2024-10-17] MEDS: METOPROLOL ER 25 MG TABLET PO (08:10)
[2024-10-17] MEDS: LEVOTHYROXINE 112 MCG TABLET PO (08:10)
[2024-10-17] MEDS: POTASSIUM CHLORIDE 20 MEQ TAB 40 MEQ PO (08:10)
[2024-10-17] MEDS: PANTOPRAZOLE DR 40 MG TABLET PO (08:10)
[2024-10-17] MEDS: MAGNESIUM SULFATE 2 GM/50 ML PIGGYBACK IV (08:10)
[2024-10-17] MEDS: VENLAFAXINE ER 75 MG CAP 225 MG PO (08:11)
[2024-10-17] MEDS: ENOXAPARIN 40 MG/0.4 ML SYRINGE SUBCUT (10:51)
[2024-10-17] MEDS: ONDANSETRON 4 MG/2 ML INJ IV (11:08)
--- NOTE | 2024-10-17 12:08 | P.DS_ITS ---
History of Present Illness History of Present Illness Date Patient Seen: 10/17/24 Time Patient Seen: 09:00 Chief complaint: Has fainted twice in last 24hours Narrative: cc: acute kidney failure, dehydration, syncope Patient feeling a bit better today ready to go home Creatinine has continued to improve with hydration IVF I do recommend continue that Potassium and magnesium are better but low recommend continue supplementation will send via outside EMR MRI brain yesterday reassuringly normal Had some orthostatics yesterday a bit wobbly on feet recommend outpatient PT - normal cardiac/vascular sonographer. Discharge Providers Provider Date of admission: 10/16/24 11:09 Discharge Date: 10/17/24 Primary care physician: Sourav Aguilar MD Consults: 10/15/24 13:51 Consult to Physical Therapy Evaluate & Treat Comment: weakness Physician Instructions: Evaluate and Treat 10/16/24 11:27 Consult to Occupational Therapy Evaluate & Treat Comment: Physician Instructions: Evaluate and treat Consult to Speech Therapy Evaluate & Treat Comment: Physician Instructions: Evaluate and treat Discharge provider: Pepe Beard MD Summary Hospital Course Discharge Diagnosis: # acute renal failure #Syncope/fall #Abdominal pain #Positive Cologuard #Dehydration #Depression #Nausea and vomiting #Hypokalemia #acquired hypothyroidism #Asthma #Primary hypertension #orthostatic hypotension Hospital Course: Ms. Stearns is a 59yoF who presented to the ED after 2 distinct syncopal episodes one at he gym working out and one at work at her desk. She has been taking a GLP-1 for weight loss with loss of 40 pounds last dose 2 weeks prior. She does have a history of random syncope unexplained for which she has an implanted ICD which reportedly did not fire during episodes. In the ED she was noted to have kidney failure with elevated creatinine suggestive of extreme dehydration and was admitted for resuscitation and monitoring. Over course of admission her kidney function improved markedly and some concern for polypharmacy emerged as a possible culprit in addition to her dehydration. We were able to obtain a brain MRI which was within normal limits. She is a bit wobbly working with PT - see note - and use of a FWW was recommended and discussed with her sister who is a nurse. By DoD her creatinine was almost back to baseline and she was feeling more herself. She will continue oral supplementation of potassium and magnesium and recheck them when she comes for outpt PCP f/up appt as well as get referral to outpt PT. She does have a positive Cologuard result that needs scoping to follow up also. Status at Discharge Cognitive/behavioral status at discharge: oriented and calm Functional status at discharge: uses cane/walker Overall status at discharge: patient is progressing back to baseline Time Spent with Patient Time spent: Greater than 30 minutes Exam Vital Signs (past 8 hours): - 10/17/24 04:37 10/17/24 08:00 10/17/24 08:10 Temperature 96.7 F L 97.6 F Pulse Rate 67 72 68 Respiratory Rate 18 16 Blood Pressure 131/83 136/70 Pulse Oximetry 94 96 Oxygen Flow Rate 0 0 10/17/24 08:12 10/17/24 10:52 Temperature Pulse Rate Respiratory Rate Blood Pressure 138/78 138/78 Pulse Oximetry Oxygen Flow Rate Oxygen Delivery Method Room Air Oxygen Flow Rate 0 Narrative Exam Narrative: resting in bed with sister at bedside Const Other: well nourished well developed Resp Other: mildly junky breath sounds bilaterally moving air ok on room air Cardio Other: regular rate and rhythm s1/s2 no pedal edema well perfused GI Other: soft nontender subdued bowel sounds Neuro Other: alert awake oriented moving all limbs Objective Labs 10/17/24 04:30 10/17/24 04:30 Labs: Laboratory Results - last 24 hr 10/17/24 04:30 WBC 5.4 RBC 4.40 Hgb 13.1 Hct 39.2 MCV 89.2 MCH 29.7 MCHC 33.3 RDW 15.5 H Plt Count 166 Neut % (Auto) 53.0 Lymph % (Auto) 34.1 [place] % (Auto) 8.4 Eos % (Auto) 3.7 Baso % (Auto) 0.8 Neut # (Auto) 2900 Lymph # (Auto) 1900 [place] # (Auto) 500 Eos # (Auto) 200 Baso # (Auto) 0 Sodium 143 Potassium 3.3 L Chloride 106 Carbon Dioxide 28 BUN 8 Creatinine 1.29 H Estimated GFR 48 L BUN/Creatinine Ratio 6.2 Glucose 76 Calcium 8.8 Magnesium 1.5 L Total Bilirubin 0.5 AST 32 ALT 22 Alkaline Phosphatase 76 Total Protein 6.8 Albumin 3.7 Globulin 3.1 Albumin/Globulin Ratio 1.2 [facility] Medical History (Updated 10/14/24 @ 16:16 by Kaley Ngo MD) Syncope COPD (chronic obstructive pulmonary disease) Restless legs syndrome Chronic back pain No active medical problems Social History household members: children Smoking Status: Current every day smoker alcohol intake: current Discharge Assessment & Plan Assessment and Plan Assessment: # acute renal failure This was impressive on admission and has improved markedly with IV hydration back to almost normal agree this is likely secondary to nausea vomiting dehydration GLP 1. Push fluids on discharge. #Syncope/fall No recurrence. PT outpt referral at f/up appt with PCP. #Abdominal pain Appears resolved CT shows no abnormality continue PPI #Positive Cologuard Needs colonoscopy was set up will get this as outpatient #Dehydration Much improved with hydration push fluids on discharge stop GLP-1 #Depression Stable continue home meds -avoid constant benzos if possible #Nausea and vomiting Agreement be secondary to marijuana or GLP she is now 2 weeks since last GLP dose 5 days since last marijuana does think this is contributing more to her lack of appetite than anything else. Continue to hold GLP-1 consider reducing cannabis intake. #Hypokalemia Suspect this is secondary to aggressive IV hydration we will reduce fluids continue to orally replete and recheck morning #acquired hypothyroidism stable continue home meds. #Asthma Stable continue to follow #Primary hypertension #orthostatic hypotension Taking home hctz and beta ceferino stable without significant change; Blood pressure ok on discharge date. Monitor and hydrate. Dispo: home with family and FWW to f/up with PCP as outpt PCP: Lauren Diet: general code: full MDM: sister Discharge Plan Discharge Plan Patient Disposition: Home Provider Discharge Comment: home with family and FWW Discharge orders & Medications Prescriptions: Continued albuterol sulfate 90 mcg/actuation HFA aerosol inhaler 2 puff inhalation Q4H PRN (Reason: wheezing) albuterol sulfate 2.5 mg /3 mL (0.083 %) solution for nebulization 2.5 mg inhalation Q6-8H PRN (Reason: shortness of breath or wheezing) cyclobenzaprine 10 mg tablet 10 mg PO 3XD gabapentin 600 mg tablet 1,200 mg PO BEDTIME clonazepam 0.5 mg tablet 0.5 mg PO 3XD Qvar RediHaler 80 mcg/actuation HFA aerosol breath activated 1 inh inhalation BID mirtazapine 30 mg tablet 30 mg PO ONCE PM omeprazole 20 mg capsule,delayed release(DR/EC) 40 mg PO QAM hydrochlorothiazide 25 mg tablet 25 mg PO DAILY metoprolol succinate 25 mg tablet extended release 24 hr 25 mg PO DAILY levothyroxine 112 mcg tablet 112 mcg PO DAILY trazodone 100 mg tablet 200 mg PO BEDTIME venlafaxine 75 mg capsule,extended release 24hr 225 mg PO DAILY zolpidem 5 mg tablet 5 mg PO BEDTIME PRN (Reason: insomnia) Follow up/Referrals: Sourav Aguilar MD [Primary Care Provider, Family Practice] Visit Report/Discharge Packet Stand Alone Forms: Patient Portal/API, Stroke Signs & Symptoms Discharge Data Primary Care Provider: Sourav Aguilar Quality VTE Deep Vein Thrombosis/Pulmonary Embolism Present on Admission: No
--- NOTE | 2024-10-17 12:40 | PT.IPTN ---
Current Diagnoses Acute kidney failure, unspecified (10/16/24) Physical Therapy Treatment Note M2 PT-IP Current Condition Start: 10/15/24 17:19 Freq: NEEDED Status: Active Protocol: Document 10/16/24 08:28 SP (Rec: 10/16/24 10:44 SP [id number]) Physical Therapy Current Condition Current Condition Evaluation Date 10/15/24 Treatment Diagnosis Dehydration( unsteadiness on feet) M3 PT-IP Subjective Start: 10/15/24 17:19 Freq: NEEDED Status: Active Protocol: Document 10/17/24 12:40 DLM (Rec: 10/17/24 13:23 DLM Desktop) Subjective Physical Therapy Visit Type Type Treatment Note Visit Start Time 11:55 Visit Stop Time 12:40 Notes 45 min 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 Mild light-headed/dizzy feelings with change in position that resolve quickly. Patient Goals Discharge home, return to normal independent activity Therapy Pain Assessment Pain When Pain Assessed During Mobility Pain Present Pain Present Denied Pain M4 PT-IP Mobility and Gait Start: 10/15/24 17:19 Freq: NEEDED Status: Active Protocol: Document 10/17/24 12:40 DLM (Rec: 10/17/24 13:23 DLM Desktop) PT-Bed Mobility Assessment Rolling Type of Rolling Bilateral Level of Assist Independent Supine to Sit Supine to Sit Independent Sit to Supine Sit to Supine Independent Scooting Scooting to Edge of Independent Bed Scooting Up and Down Independent in Bed PT-Transfer Assessment Sit to and From Stand Sit to and from Standby Assistance Stand Equipment Transfer Assistive Gait Belt,Front Wheeled Walker Device Transfers Transfer Destination Bed Transfer Technique Stand Step Pivot Transfer Ability Level of Assist Standby Assistance,Use of Upper Extremities Comments Mobility Comments Decreased standing balance that limits her mobility, she is easily distracted which causes increased losses of balance Gait Assessment Gait Gait Assistance Standby Assistance Required: Distance (Feet) 200 Assistive Devices Assistive Device Gait Belt,Front Wheeled Walker Gait Deviations General Gait Pattern Antalgic,Narrow Based Gait Factors Limiting Gait Function Factors Limiting Decreased Activity Tolerance,Poor Balance Gait Function Comments Gait Comments Pt frequently looks at feet to determine their position . She has intermittent scissoring or right foot stepping in front of left during gait that causes decreased balance. Pt is able to use the FWW to manage her losses of balance. PT-Balance Assessment Sitting Balance and Reactions Static Sitting Normal Balance Ability Dynamic Sitting Normal Balance Ability Standing Balance and Reactions Static Standing Fair Balance Ability Dynamic Standing Fair Balance Ability Device Used FWW Balance Tests Single Limb Standing losses of balance on right, left 3 sec Romberg losses of balance with eyes closed Tandem Standing 10 sec Functional Assessments Functional Tests Tinetti Balance and Balance 8/16, Gait 10/12, Total 18 Gait Assessment Other Functional Tests Sidelying test is negative for vertigo. Roll test has Performed mild dizziness for short duration without nystagmus on right side. Visual tracking is WNL. Semont test is negative bilaterally. Pt has hx of cervical fusion so cervical precautions were taken during vestibular assessment. M5 PT-IP Objective Assessments Start: 10/15/24 17:19 Freq: NEEDED Status: Active Protocol: Document 10/17/24 12:40 DLM (Rec: 10/17/24 13:23 DLM Desktop) Orientation Orientation/Cognition Level of Alertness Alert Orientation Name,Age,Birthday,Month,Date,Year,Day of Week,Place, Situation Language Function No Deficits Noted Ability Safety Awareness Decreased Safety Awareness Comments Decreased awareness of her deficits Gross Range of Motion Upper Extremity ROM Assessment Within Functional Limits Lower Extremity ROM Assessment Within Functional Limits Strength Upper Extremity Strength Assessment Within Functional Limits Lower Extremity Strength Assessment Within Functional Limits Coordination Assessment Gross Coordination Gross Coordination Impaired Assessment Finger to Nose Test Minimal Impairment Pronation/Supination Minimal Impairment Test Foot Tapping Test Minimal Impairment Coordination mild dysmetria, mild bradykinesia with rapid Comments alternating tests Sensation Assessment Comments Sensation Comments she denies numbness, functionally she demonstrates decreased proprioceptive awareness of her feet during gait and balance testing Muscle Tone Muscle Tone WNL Yes M6 PT-IP Treatment Start: 10/15/24 17:19 Freq: NEEDED Status: Active Protocol: Document 10/17/24 12:40 DLM (Rec: 10/17/24 13:23 DLM Desktop) Physical Therapy Treatment Education Education Provided Safety Other Treatments Other Treatment discussed clinical exam findings with pt and her Sister Performed . Request pt does not drive until cleared by Physician due to syncopal episodes. Recommend she use FWW to manage her fall risk and for balance retraining. Educated pt to keep increased space between her feet during gait to improve balance. Educated pt to sit during showers to prevent falls since she shows visual dependence for balance at this time. Also recommend she avoid ambulating in the dark to manage her balance by turning on lights or using night lights. M7 PT-IP Assessment and Plan Start: 10/15/24 17:19 Freq: NEEDED Status: Active Protocol: Document 10/17/24 12:40 DLM (Rec: 10/17/24 13:23 DLM Desktop) PT Summary Assessment and Plan Summary Impairments Balance,Coordination,Sensation,Transfers,Gait,Activity Tolerance Progress Towards Progressing Toward Goals Goals Assessment Summary Ariadne continues to show slow but steady improvements during this admission. She continues to have standing balance deficits and coordination deficits that limit her functional activity. 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 Pt's head MRI and CT were negative for acute infarcts. She has supportive family to help her at home. Recommend out-pt Physical Therapy to address her ongoing impairments to return to independent gait without a device. 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 for 5 sec each LE Frequency of Treatment Frequency Of Once a Day Treatment Treatment Plan Physical Therapy Transfer Training,Gait Training,Therapeutic Exercise, Treatment Plan Balance Retraining,Neuromuscular Re-ed,Coordination Retraining Other ongoing vestibular assessment Recommendations and Next Treatment Focus Precautions Other Precautions high fall risk, hx of orthostatic hypotension and syncopal events Recommendations To Nursing Amount of Assist Standby Assistance Needed Discharge Recommendations PT Discharge Home with Assistance,Outpatient PT Recommendations Other Discharge further vestibular assessment in out-pt Recommendations Her Son's and Sister are prepared to help her at home. Equipment Needed for FWW, shower seat Home Before Discharge Transportation Needs Private Vehicle at Discharge - PT assist 1
--- NOTE | 2024-10-17 13:35 | OT.IPNOTE ---
Attempted to see pt, pt in tears and pt's sister Rhodna present with her for comfort. Pt will greatly benefit from outpt PT. Pt to go home with 24/7 available assist.
--- NOTE | 2024-10-17 14:25 | CM.DPNOTE ---
DC Note Discharge home today w/family support and DME. Cleared by therapies for this plan. VIDA
== END 2024-10-17 15:10 | disposition home or self-care (01) | DRG 641 ==
LOC: ED 15:07 → AC 16:06
PROVIDERS: Family Medicine; Admitting Provider Family Medicine; Emergency Provider Emergency Medicine; Family Provider Family Medicine; PCP Family Medicine; Referring Provider Emergency Medicine; Visit Provider Family Medicine
DX: E86.0 Dehydration (principal); N17.9 Acute kidney failure, unspecified; R10.13 Epigastric pain; F32.A Depression, unspecified; R11.2 Nausea with vomiting, unspecified; E87.6 Hypokalemia; J45.909 Unspecified asthma, uncomplicated; I10 Essential (primary) hypertension; R19.5 Other fecal abnormalities; R26.81 Unsteadiness on feet; E03.9 Hypothyroidism, unspecified; I95.1 Orthostatic hypotension; E83.42 Hypomagnesemia; F17.200 Nicotine dependence, unspecified, uncomplicated
CPT/HCPCS: 36415; 70450; 70553; 71045; 74176; 80048; 80053; 82150; 82962; 83690; 83735; 83880; 84145; 84484; 85025; 92523; 93005; 93010; 94640; 96360; 97112; 97116; 97162; 97166; 97530; 99284; 99285; G0378; A9579; J1650; J2405; J3475; J7613

== ENCOUNTER → 2024-10-20 15:15 | Outpatient (CLI) | payer OTHER, SELFPAY ==
--- NOTE | 2024-10-20 15:16 | DI.MG.S_ITS ---
MM screening mammo BI: 10/20/2024. BI-RADS: 1 CLINICAL: 59-year old female for bilateral screening mammogram. Tyrer-Cuzick lifetime risk of 4.4%. No personal or first-degree family history of breast cancer. PRIOR EXAMS 03/26/2020. MAMMOGRAPHY TECHNIQUE: 2D and 3D (tomosynthesis) digital mammographic views obtained, with additional images as needed for full coverage. Current study was also evaluated with a Computer Aided Detection (CAD) system. DENSITY B. There are scattered areas of fibroglandular density. MAMMOGRAPHY FINDINGS Bilateral: No suspicious mass, asymmetry, microcalcification, or other abnormality seen. No significant change from comparison. IMPRESSION: * No evidence of malignancy. RECOMMENDATIONS Bilateral * Annual screening mammography. OVERALL ASSESSMENT CATEGORY BI-RADS-1: Negative. The [employer] recommends annual screening mammography beginning at age 40 for women with average risk of breast cancer. ELECTRONICALLY SIGNED: Rob Brown M.D. on 10/21/2024 at 10:36:19 AM PT
== END ==
LOC: MAMMO 15:16
PROVIDERS: Family Provider Family Medicine; PCP Family Medicine; Referring Provider Family Medicine; Visit Provider Family Medicine
DX: Z12.31 Encounter for screening mammogram for malignant neoplasm of breast (principal)
CPT/HCPCS: 77063; 77067

== ENCOUNTER 2024-11-11 07:53 | Day surgery (SDC) | payer OTHER, SELFPAY ==
[2024-10-14 17:56] VITALS: BMI 29.5
--- NOTE | 2024-11-11 | PATH_ITS ---
[facility] Accession Number: [id number] No. of containers..01 Tissue . 01 Material submitted: . colon - SIGMOID POLYP 20CM . 01 Diagnosis: SIGMOID COLON POLYP AT 20 CM: Hyperplastic polyp. MRV 11/20/2024 1428 Local . 01 Electronically signed: . Brennon Iabrra MD, PhD, Pathologist NPI- [id number] . 01 Gross description: . SIGMOID POLYP 20CM: Received in formalin is 1 fragment(s) of duarte, soft tissue measuring 0.5 x 0.3 x 0.2 cm submitted entirely in 1 cassette(s) /COLE 11/19/2024 1657 Local . 01 Pathologist provided ICD-10: K63.5 . 01 CPT . 135167 Specimen Comment: A courtesy copy of this report has been sent to [facility] Pathology Performed at: [address] [facility] [address] [address], [place], [place] [id number] MD Tray Saucedo MD Phone: [phone]
--- NOTE | 2024-11-11 07:42 | PM.HP.IH.1 ---
History of Present Illness History of Present Illness Date Patient Seen: 11/11/24 Time Patient Seen: 07:43 Chief complaint: Screening Colonoscopy Narrative: 59yo F presents for screening colonoscopy today. +Cologuard test. [facility] Medical History (Updated 11/11/24 @ 07:44 by Ramone Chen MD) ICD (implantable cardioverter-defibrillator) in place Syncope COPD (chronic obstructive pulmonary disease) Restless legs syndrome Chronic back pain No active medical problems Social History household members: children alcohol intake: current Meds Home Medications and Allergies Home Medications ?Medication ?Instructions ?Recorded ?Confirmed ?Type albuterol sulfate 2.5 mg/3 mL 2.5 mg inhalation Q6-8H PRN 10/14/24 10/14/24 History (0.083 %) solution for nebulization shortness of breath or wheezing albuterol sulfate 90 mcg/actuation 2 puff inhalation Q4H PRN wheezing 10/14/24 10/14/24 History aerosol inhaler beclomethasone dipropionate 80 1 inh inhalation BID 10/14/24 10/14/24 History mcg/actuation HFA breath activated aerosol (Qvar RediHaler) clonazepam 0.5 mg tablet 0.5 mg PO 3XD 10/14/24 10/14/24 History cyclobenzaprine 10 mg tablet 10 mg PO 3XD 10/14/24 10/14/24 History gabapentin 600 mg tablet 1,200 mg PO BEDTIME 10/14/24 10/14/24 History hydrochlorothiazide 25 mg tablet 25 mg PO DAILY 10/14/24 10/14/24 History levothyroxine 112 mcg tablet 112 mcg PO DAILY 10/14/24 10/14/24 History metoprolol succinate 25 mg 25 mg PO DAILY 10/14/24 10/14/24 History tablet,extended release 24 hr mirtazapine 30 mg tablet 30 mg PO ONCE PM 10/14/24 10/14/24 History omeprazole 20 mg capsule,delayed 40 mg PO QAM 10/14/24 10/14/24 History release trazodone 100 mg tablet 200 mg PO BEDTIME 10/14/24 10/14/24 History venlafaxine 75 mg capsule,extended 225 mg PO DAILY 10/14/24 10/14/24 History release 24 hr zolpidem 5 mg tablet 5 mg PO BEDTIME PRN insomnia 10/14/24 10/14/24 History sodium,potassium,mag sulfates 17.5 See Rx Instructions PO .COMPLEX 10/27/24 Rx gram-3.13 gram-1.6 gram oral soln #354 mL (Suprep Bowel Prep Kit) Allergies Allergy/AdvReac Type Severity Reaction Status Date / Time adhesive Allergy Unknown Verified 10/14/24 13:22 Penicillins Allergy Verified 10/15/24 19:05 Exam Const General: comfortable Orientation: alert and oriented x3 Resp Effort & Inspection: normal respiratory effort Auscultation: clear to auscultation bilaterally Cardio Rate: regular rate Rhythm: regular rhythm GI Palpation: soft (nontender) Extrem Other: without pitting edema Assessment & Plan Assessment and plan (1) Encounter for screening colonoscopy: Status: Acute Plan Colonoscopy, possible polypectomy. The risks, benefits and options regarding the procedure were explained to the patient in detail. Risk discussion included but not limited to: bleeding, perforation, missed lesion, unable to reach cecum. The patient was encouraged to ask questions and they were answered to their satisfaction. The patient understands and is agreeable to proceed. Time-Based Coding :: [TOTAL MINUTES] spent with patient and on the chart (including review of chart, obtaining history, exam, reviewing outside data, placing orders, documenting exam and treatment plan, and counseling patient) on [DATE]. [employer] Employee Communications Coordinator Document charge(s): Yes Charge Codes Initial inpatient/observation care: 11787
[2024-11-11 08:23] VITALS: BP 120/73; PULSE 67; RESP 16; TEMP 36.2; O2SAT 94
[2024-11-11] MEDS: ALBUTEROL/IPRATROPIUM 3 ML AMPUL INH (08:36)
--- NOTE | 2024-11-11 08:36 | SUR.PREOP ---
Pt arrives to pre-op with very productive cough that she reports is new as of a few days. 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 Dr. Wang consulted, order for Duoneb and URI PCR received and sent to lab. PCR negative. LCTAB anterior, occasionally coarse upper posterior, improved with coughing.
[2024-11-11 08:39] LABS: Alanine Aminotransferase 24 IU/L (<35); Albumin 4.4 g/dL (3.5-5.0); Albumin Globulin Ratio 1.3 (1.0-2.8); Alkaline Phosphatase 78 U/L (38-126); Blood Urea Nitrogen 11 mg/dL (7-17); Calcium 9.3 mg/dL (8.4-10.2); Carbon Dioxide 25 mmol/L (22-32); Chloride 102 mmol/L (98-107); Estimated Glomerular Filt Rate 41 mL/min (>60); Globulin 3.5 g/dL (1.7-4.1); Glucose 98 mg/dL (70-99); HEMOLYSIS 44 (0-50); Magnesium 1.9 mg/dL (1.6-2.3); Potassium 4.4 mmol/L (3.4-5.1); Sodium 138 mmol/L (137-145); Total Protein 7.9 g/dL (6.3-8.2)
[2024-11-11] MEDS: LACTATED RINGERS 1,000 ML 42 ML IV (08:46)
[2024-11-11 09:10] LABS: Influenza A - CEPHEID Flu A NEGATIVE (NEGATIVE); Influenza B - CEPHEID Flu B NEGATIVE (NEGATIVE)
[2024-11-11 09:16] LABS: COVID-19 CEPHEID 4-PLEX PCR Negative (Negative)
[2024-11-11 10:17] VITALS: BP 126/77; PULSE 84; RESP 12; TEMP 36.2; O2SAT 94
[2024-11-11 10:20] VITALS: BP 132/78; PULSE 84; RESP 12; O2SAT 95
--- NOTE | 2024-11-11 10:20 | PM.OP.COLON ---
Operative Date/Time/Diagnoses Date of procedure: 11/11/24 Time of procedure: 10:21 Pre-op diagnosis: Need for screening colonoscopy, +Cologuard Post-op diagnosis: other (Small 3mm benign appearing polyp in sigmoid colon, removed with cold snare and retrieved for pathology) Procedure & Clinicians Study performed: Colonoscopy with polypectomy Same procedure(s) as scheduled: Yes Indications: 59yo F, +Cologuard test Surgeon: Ramone Chen Anesthesia Type: MAC +/- Procedure Notes SCOAP/Timeout: Performed Procedure in detail: Colonoscopy Patient placed in left lateral recumbent position. Time out was performed. Procedural sedation was administered by anesthesia. Examination began with a thorough inspection of the perianal area. There was no evidence of fissures, fistulae, external hemorrhoids or cutaneous malignancy. The colonoscope was then placed into the rectum and the lumen was insufflated with carbon dioxide. The scope was carefully advanced forward. Ultimately the cecum was intubated and confirmed by identification of the ileocecal valve, the appendiceal orifice and the confluence of the taenia. The scope was then slowly withdrawn examining the colon thoroughly in all directions. In the rectum, retroflexion of the scope was performed for inspection of the distal rectum and anal canal. ?Significant colonoscopy findings: ?1. Quality of the preparation-good, [place] 2-3, liquid stool suctioned to facilitate mucosal examination ?2. 3mm sigmoid polyp, sessile, benign appearing, sigmoid colon, removed with cold snare, retrieved for pathology Scope withdrawal time: 16 minutes Findings: polyp(s) (3mm sessile sigmoid) Specimen(s): other (polyp sigmoid) Complications: none Impression: Sigmoid 3mm sessile polyp, path pending Post-procedure Recommendations: Colonoscopy in 5 years Plan for aftercare: PACU then home Follow up: as needed Disposition: PACU
[2024-11-11 10:25] VITALS: BP 134/75; PULSE 82; RESP 14; TEMP 36.9; O2SAT 95
== END 2024-11-11 10:44 | disposition home or self-care (01) ==
PROVIDERS: Nurse Anesthetist, Certified Registered; Family Provider Family Medicine; PCP Family Medicine; Referring Provider Family Medicine; Visit Provider Surgery
PROC: 0DJD8ZZ Inspection of Lower Intestinal Tract, Via Natural or Artificial Opening Endoscopic (ICD-10-PCS; CPT 45378; principal; 2024-11-11 08:30)
DX: Z12.11 Encounter for screening for malignant neoplasm of colon (principal); R19.5 Other fecal abnormalities; K63.5 Polyp of colon
CPT/HCPCS: 45385; 36415; 80053; 83735; 87637; J2704